=== PATIENT | male | born 1965 | race Caucasian/White ===

== ENCOUNTER 2018-04-30 09:39 | Inpatient (IN) | payer BC, OTHER ==
[2018-04-30] MEDS ORDERED: predniSONE TAB* 20 MG PO ONE (10:01)
--- NOTE | 2018-04-30 10:08 | ED ---
HPI Chest Pain - HPI Summary HPI Summary: A 52 y/o male presents to [facility] with a chief complaint of chest pain, which he describes as a tightness, since 04/16/18. He claims that his chest pain is constant and radiates to his shoulder. He also c/o cough, sore throat, high BP, SOB, trouble sleeping, chills, sweats, and N/V. He denies a runny nose and headaches. He has a Hx of HTN, DM and Bronchitis, FHx asthma. He reports using a steroid inhaler since 04/23/18. He is a smoker, but has cut back since his symptoms started. - History of Current Complaint Chief Complaint: EDUpperRespComplaint Time Seen by Provider: 04/30/18 09:49 Hx Obtained From: Patient Onset/Duration: Started Weeks Ago, Still Present Timing: Constant Initial Severity: Severe Current Severity: Severe Pain Intensity: 7 Pain Scale Used: 0-10 Numeric Chest Pain Radiates To:: Shoulder Character: Tightness Aggravating Factor(s): Movement Alleviating Factor(s): Nothing Associated Signs and Symptoms: Positive: Shortness of Breath, Chills, Diaphoresis, Nausea, Nonproductive Cough, Vomiting. Negative: Headaches - Allergy/Home Medications Allergies/Adverse Reactions: Allergies Allergy/AdvReac Type Severity Reaction Status Date / Time Penicillins Allergy Rash And Verified 04/30/18 09:44 Itching Home Medications: Home Medications Cetirizine* [ZyrTEC 10 MG TAB*] 10 mg PO DAILY 04/30/18 [History Confirmed 04/30] Metformin ER (NF) 2,000 mg PO DAILY 04/30/18 [History Confirmed 04/30/18] Mirtazapine TAB* [Remeron TAB*] 30 mg PO BEDTIME 04/30/18 [History Confirmed 01/08] Ranitidine TAB (NF) [Zantac TAB (NF)] 150 mg PO DAILY 04/30/18 [History Confirmed 04/30/18] amLODIPine TAB* [Norvasc 5 mg TAB*] 5 mg PO DAILY 04/30/18 [History Confirmed ] busPIRone TAB* [Buspar TAB *] 15 mg PO BID 04/30/18 [History Confirmed 04/30/18] PMH/Surg Hx/FS Hx/Imm Hx Endocrine/Hematology History: Reports: Hx Diabetes Cardiovascular History: Reports: Hx Hypertension Respiratory History: Denies: Hx Asthma Infectious Disease History: No Infectious Disease History: Denies: Traveled Outside the [place] in Last 30 Days - Family History Known Family History: Positive: Other - Positive: Asthma - Social History Alcohol Use: None Substance Use Type: Reports: None Hx Tobacco Use: Yes Smoking Status (MU): Heavy Every Day Tobacco Smoker Type: Cigarettes Review of Systems Positive: Chills, Skin Diaphoresis, Other - Positive: difficuly sleeping. Negative: Fever Positive: Sore Throat Positive: Chest Pain, Other - Positive: high BP Positive: Shortness Of Breath, Cough Positive: Vomiting, Nausea Negative: Headache All Other Systems Reviewed And Are Negative: Yes Physical Exam - Summary Physical Exam Summary: Appearance: Well appearing, no pain distress Skin: warm, dry, reflects adequate perfusion Head/face: normal Eyes: EOMI, DELMY ENT: mucous membranes moist Neck: supple, non-tender Respiratory: Diminished breath sounds right base, no wheezes Cardiovascular: tachycardic, regular rhythm, pulses symmetrical Abdomen: non-tender, soft Bowel Sounds: present Musculoskeletal: normal, strength/ROM intact Neuro: normal, sensory motor intact, A&Ox3 Triage Information Reviewed: Yes Vital Signs On Initial Exam: Initial Vitals Temp Pulse Resp BP Pulse Ox 98.9 F 133 22 173/114 98 04/30/18 09:40 04/30/18 09:40 04/30/18 09:40 04/30/18 09:40 04/30/18 09:40 Vital Signs Reviewed: Yes Diagnostics - Vital Signs Vital Signs Temp Pulse Resp BP Pulse Ox 04/30/18 09:40 98.9 F 133 22 173/114 98 - Laboratory Result Diagrams: 04/30/18 10:36 04/30/18 10:36 Lab Statement: Any lab studies that have been ordered have been reviewed, and results considered in the medical decision making process. - Radiology CXR Radiology Interpretation Completed By: Radiologist Summary of Radiographic Findings: NO EVIDENCE FOR ACUTE FINDING. ED provider has reviewed this imaging report. - CT Chest/thorax CTA CT Interpretation Completed By: Radiologist Summary of CT Findings: No evidence for pulmonary embolism. LEFT anterior descending coronary artery calcification noted. Negative for pulmonary edema. ED provider has reviewed this imaging report. - EKG 10:34 Cardiac Rate: Tachycardia - 122 bpm EKG Rhythm: Sinus Tachycardia ST Segment: Non-Specific Summary of EKG Findings: Sinus tachycardia at 122 bpm. Normal Vill[place]. Normal Interval. Nonspecific ST Re-Evaluation - Re-Evaluation First Eval Re-Evaluation Time: 11:11 Change: Unchanged Comment: Chest pain is feeling better but sitting up aggravates his pain. Second Eval Re-Evaluation Time: 11:33 Change: Unchanged Comment: Discussed results and plan of admission to patient's mother. Third Eval Re-Evaluation Time: 11:49 Change: Unchanged Comment: Informed patient about high troponin and plan for admission. Chest Pain Course/Dx - Course Course Of Treatment: Nurse's notes reviewed. Patient presents with what he feels is cough and cold symptoms including cough, shortness of breath and left- sided chest pain. His blood sugar is also been out of control. Patient proved to have elevated troponin with tachycardia but no significant ST changes on EKG. CT pulmonary angiogram ruled out pulmonary emboli. There was incidental calcification noticed in the LAD. There is no pneumonia and flu test was negative. Patient was discussed with cardiology who will see in consultation. He will be admitted to the hospitalist service. He is placed on a heparin drip here for positive acute coronary syndrome. - Chest Pain Differential Diagnosis/HQI/PQRI: Acute NV, ACS, Angina, CHF, Chest Wall, GI Disease, Lower Respiratory Infection, Pulmonary Edema, Pulmonary Embolism - Diagnoses Provider Diagnoses: COPD (chronic obstructive pulmonary disease), Hyperglycemia, Non-ST elevation NV (NSTEMI), Acute coronary syndrome - Provider Notifications Discussed Care Of Patient With: Ming Webb Time Discussed With Above Provider: 11:30 Instructed by Provider To: Admit As Inpatient - Critical Care Time Critical Care Time: 30-74 min - CCT is EXCLUSIVE of separately billable procedures. Discharge - Sign-Out/Discharge Documenting (check all that apply): Patient Departure - admit - Discharge Plan Condition: Guarded Disposition: ADMITTED TO [facility] - Billing Disposition and Condition Condition: GUARDED Disposition: Admitted to [facility] - Attestation Statements Document Initiated by Scribe: Yes Documenting Scribe: Ferdinand Cho Provider For Whom Scribe is Documenting (Include Credential): Fam Ladd MD Scribe Attestation: Ferdinand Marie, scribed for Fam Ladd MD on 04/30/18 at 1321. Scribe Documentation Reviewed: Yes Provider Attestation: The documentation as recorded by the scribe, Ferdinand Cho accurately reflects the service I personally performed and the decisions made by me, Fam Ladd MD Status of Scribe Document: Viewed Consult Consult: At 11:[address] Tucker, cardio, who is now on the case.
[2018-04-30] MEDS ORDERED: NS 0.9% 1000 ML** 1,000 ML IV ONE (10:24)
[2018-04-30] MEDS ORDERED: Ketorolac INJ* 30 MG/ML 1 ML VIAL IV PUSH ONE (10:24)
[2018-04-30 10:43] LABS: Influenza A Molecular NEGATIVE (Negative); Influenza B Molecular NEGATIVE (Negative)
[2018-04-30 10:43] LABS: ABS Basophils 0 10^3/ul (0-0.2); ABS Eosinophils 0.2 10^3/ul (0-0.6); ABS Lymphocytes 0.5 10^3/ul (1.0-4.8); ABS Monocytes 0.7 10^3/ul (0-0.8); ABS Neutrophils 6.8 10^3/ul (1.5-7.7); ABS Nucleated RBC 0 10^3/ul; Eosinophil % 2.9 %; Hematocrit 42 % (42-52); Hemoglobin 14.6 g/dl (14.0-18.0); Lymphocyte % 5.5 %; Mean Corpuscular HGB Conc 35 g/dl (31-36); Mean Corpuscular Hemoglobin 31 pg (27-31); Mean Corpuscular Volume 88 fL (80-94); Mean Platelet Volume 8.4 fL (7.4-10.4); Nucleated Red Blood Cells % 0.1; Platelet Count 207 10^3/ul (150-450); Red Cell Distribution Width 13 % (10.5-15); White Blood Count 8.2 10^3/ul (3.5-10.8)
[2018-04-30 11:04] LABS: Troponin I 0.49 ng/mL (<0.04)
[2018-04-30] MEDS ORDERED: Metoprolol Tartrate IV* 1 MG/ML 5 ML VIAL IV ONE ×2 (11:05→11:51)
[2018-04-30] MEDS ORDERED: Aspirin 81 mg CHEW TAB* 81 MG TAB.CHEW PO ONE (11:05)
[2018-04-30 11:15] LABS: ALT 44 U/L (7-52); AST 35 U/L (13-39); Albumin/Globulin Ratio 1.2 (1-3); Alkaline Phosphatase 138 U/L (34-104); Anion Gap 11 mmol/L (2-11); BUN/Creatinine Ratio 12.6 (8-20); Blood Urea Nitrogen 11 mg/dL (6-24); CO2 Carbon Dioxide 23 mmol/L (22-32); Chloride 92 mmol/L (101-111); EGFR African American 112.4 (>60); EGFR Non-African American 92.9 (>60); Globulin 3.3 g/dL (2-4); Glucose 346 mg/dL (70-100); Potassium 4.5 mmol/L (3.5-5.0); Sodium 126 mmol/L (135-145); Total Protein 7.3 g/dL (6.4-8.9)
[2018-04-30] MEDS ORDERED: Heparin DRIP 25,000 UNITS(*) 25,000 UNITS/500 ML BAG IV SCH ×2 (11:15→13:00)
[2018-04-30] MEDS ORDERED: Iodixanol* (CONTRAST) 320 MG/ML 100 ML SDV IV ONE (11:18)
[2018-04-30] MEDS ORDERED: Heparin DRIP 25,000 UNITS(*) 25,000 UNITS/500 ML BAG ONE (11:35)
[2018-04-30] MEDS ORDERED: Heparin VIAL(*) 5000 UNITS/ML VIAL (FIVE THOUSAND) ONE (11:38)
[2018-04-30 11:39] LABS: Alcohol < 10 mg/dL (<10)
[2018-04-30 12:04] LABS: Activated Partial Thrombo Time 30.1 seconds (26.0-36.3); INR 0.92 (0.77-1.02)
[2018-04-30] MEDS ORDERED: Dextrose 50% Syringe 50 ML* 25 GM/50 ML SYRINGE IV PUSH PRN ×2 (13:11→17:12)
[2018-04-30] MEDS ORDERED: Aspirin TAB* 325 MG PO ONE (13:12)
[2018-04-30] MEDS ORDERED: Morphine VIAL* 4 MG/ML VIAL (1 ml vial) IV PRN (13:13)
[2018-04-30] MEDS ORDERED: Nitroglycerin TAB 0.4 MG* 0.4 MG TAB SL ONE (13:16)
[2018-04-30] MEDS ORDERED: Nitroglycerin TAB 0.4 MG* 0.4 MG TAB SL PRN ×2 (13:59→18:11)
[2018-04-30] MEDS ORDERED: Furosemide IV* 10 MG/ML VIAL (40 MG) IV SCH (14:00)
[2018-04-30] MEDS ORDERED: Perflutren Lipid Microsphere* 3 ML VIAL ONE (14:41)
--- NOTE | 2018-04-30 15:47 | HP ---
ADMITTING HISTORY AND PHYSICAL: DATE OF ADMISSION: 04/30/18 CHIEF COMPLAINT: Progressive shortness of breath and chest pain for the last 2 weeks that has been worsening for the last week. HISTORY OF PRESENT ILLNESS/HOSPITAL COURSE: The patient is a 52-year-old gentleman with history of anxiety; diabetes, not insulin requiring; hypertension, who mentioned that he started having some cough and some shortness of breath more pronounced with exertion for the past 2 weeks. However , he mentioned that since last Saturday which is about 6 days prior to admission, his symptoms worsened and persistence of her signs and symptoms led to his presentation in the ED. In addition, he mentioned that last night, he felt as if he was having fevers or chills, but denied any cough. No sputum production. Only felt a very brief episode of myalgias and arthralgias, but noting persistent and mentions that he does not have any sick contacts. PAST MEDICAL AND SURGICAL HISTORY: Hypertension, depression, anxiety, diabetes , and GERD. ALLERGIES: PENICILLIN, which causes rashes. FAMILY HISTORY: Diabetes, his mother. Hypertension, his father. Coronary artery disease, his paternal grandfather. CVA, his maternal grandfather. SOCIAL HISTORY: He is a facility maintenance technician. He is single. He lives with his mother. He is never and does not have any children. REVIEW OF SYSTEMS: The patient complained of some continuous chest pain that sometimes radiates to the upper portion of his chest, to the back of his throat , as well as dyspnea on exertion that has worsened and now affects him at rest for the last 2 days or so. Denies any headaches, dizziness. He did have some brief chills. Denied any abdominal pain, diarrhea, constipation, pain and/or increase frequency in urination, myalgias or arthralgias, throat pain, or new skin lesions. He does complain of some mild dyspepsia. The rest of the 14- point review of systems are otherwise unremarkable. PHYSICAL EXAMINATION GENERAL APPEARANCE: The patient is awake, alert, and oriented x3; not in acute distress. VITAL SIGNS: Shows the most recent vital signs of records with blood pressure of 115/88, 98.9 degrees Fahrenheit, 110 per minute heart rate, 16 per minute respiratory rate, saturating at 95% at 2 L nasal canula. HEENT: Normocephalic, atraumatic. PERRLA. Extraocular muscles intact. Negative for icterus. Moist oral mucosa. Negative throat erythema. NECK: Soft, supple with no cervical lymphadenopathy. No JVD. CHEST: With bibasilar crackles. HEART: S1, S2, within normal limites. Regular rate and rhythm. No murmurs, rubs and gallops. ABDOMEN: Soft, nondistended, nontender. Normoactive bowel sounds x4 quadrant. EXTREMITIES: No cyanosis, clubbing, or edema. PSYCHIATRIC: No active psychosis, depression, suicidal, or homicidal ideations. SKIN: Warm to touch. ASSESSMENT AND PLAN: As follows: The patient is a 52-year-old gentleman with history of anxiety, noninsulin-requiring diabetes and hypertension, who presented with chest pain and shortness of breath. 1. Chest pain/shortness of breath. I believed the patient may have newly diagnosed congestive heart failure. Even though that it is not reported in the official CT scan report, I feel that he does have enough ground glass opacities and certainly his symptoms of dyspnea on exertion despite absence of jugular venous distention for possible left sided failure is still possible. He does have a mildly elevated BNP and we diuresed the patient for now until we can get 2D echo. In addition, his dyspnea on exertion may also be presentation of an unstable angina and hence I will place him on heparin drip while 2D echo as well as troponins are cycled and are currently pending. He also has a stress test that I have ordered for tomorrow. We will continue him on aspirin, morphine p.r.n., as well as nitroglycerine p.r.n. for chest pain and oxygen per protocol. 2. Gastroesophageal reflux disease. I believe some of his chest pain, especially his complaints of it radiating to the upper portions of his chest as well as possibly having some throat pain would be more consistent of gastroesophageal reflux symptoms and hence we would hold his ranitidine and instead place him on pantoprazole and we will continue watchful waiting. 3. Diabetes mellitus. We will hold on metformin at this time and we will place the patient on insulin sliding scale and will check fingersticks as ordered. 4. Hypertension. We will place the patient on amlodipine and we will consider metoprolol once acute, likely left-sided congestive heart failure has improved and can be considered as an outpatient. Please see above discussion for details. 5. Anxiety. We will continue buspirone. 6. DVT prophylaxis. The patient will be on a heparin drip. 7. Disposition: For PT kadial. [id number]/[facility] #: [id number] [facility]
--- NOTE | 2018-04-30 15:56 | ECHO ---
Patient: TIM BRONSON Rec#: [id number] : 1965 Date: 04/30/2018 Age: 52y Height: 188 cm / 74.0 in Weight: 95.3 kg / 210.0 lbs Sex: M BSA: 2.2 Room#: [facility] Admit Date#: 04/30/2018 Type: Inpatient Referring: Ming Webb Reading: Catrina Buitrago MD Predictive Maintenance Technician: Marcia Christian RN RDCS CC: Wandy Gong MD Transthoracic Echocardiogram Indication: Chest pain, elevated troponin level BP: 115/88 HR: 106 Rhythm: Tachycardia Findings History: HTN, DM, bronchitis, smoker Technical Comments: The study quality is fair. The study is technically limited due to the patient's smoking history. Left Ventricle: The left ventricular chamber size is normal. Mild to moderate concentric left ventricular hypertrophy is observed. There is a focal wall motion abnormality present.Akinesis and severe hypokinesis of the posterior wall to the apex and lateral wall, best imaged with echo contrast. There is moderately decreased left ventricular systolic function. The estimated ejection fraction is 35-40%. Abnormal left ventricular diastolic function is observed. Left Atrium: The left atrium is mildly dilated. Right Ventricle: The right ventricular chamber size and systolic function are within normal limits. Right Atrium: The right atrial cavity size is normal. Aortic Valve: The aortic valve is trileaflet. The aortic valve leaflets are mildly thickened. There is a trace of aortic regurgitation. There is no evidence of aortic stenosis. Mitral Valve: The mitral valve leaflets are mildly thickened. There is mild to moderate mitral regurgitation. There is no evidence of mitral stenosis. Tricuspid Valve: The tricuspid valve leaflets are normal. There is mild to moderate tricuspid regurgitation. The right ventricular systolic pressure is estimated at 46 mmHg. There is evidence of moderate pulmonary hypertension. There is no tricuspid stenosis. Pulmonic Valve: The pulmonic valve appears normal. There is no evidence of pulmonic regurgitation. There is no pulmonic stenosis. Pericardium: There is no significant pericardial effusion. Aorta: There is no dilatation of the ascending aorta. There is no dilatation of the aortic arch. There is no dilation of the aortic root. Pulmonary Artery: The main pulmonary artery appears normal. Venous: The inferior vena cava is dilated. There is less than 50% respiratory change in the inferior vena cava dimension. Contrast: Definity was used to optimize study. A total of 3 ml of diluted Definity was given IV. Conclusions Mild to moderate concentric left ventricular hypertrophy is observed. There is a focal wall motion abnormality present.Akinesis and severe hypokinesis of the posterior wall to the apex and lateral wall, best imaged with echo contrast. There is moderately decreased left ventricular systolic function. The estimated ejection fraction is 40%. Abnormal left ventricular diastolic function is observed. The right ventricular chamber size and systolic function are within normal limits. There is a trace of aortic regurgitation. There is mild to moderate mitral regurgitation, lateral jet. There is mild to moderate tricuspid regurgitation. There is evidence of moderate pulmonary hypertension estimated at 46 mmHg. No prior echo to compare. Measurements Name Value Normal Range RVIDd (AP) 2D 2.7 cm (0.9 - 2.6) RVDdMajor (2D) 3.2 cm (2.2 - 4.4) RAd ISD 4CH 4.2 cm (3.4 - 4.9) RA (A4C)W 3.6 cm (2.9 - 4.6) IVSd (2D) 1.4 cm (0.6 - 1) LVPWd (2D) 1.1 cm (0.6 - 1) LVIDd (2D) 5 cm (3.6 - 5.4) LVIDs (2D) 3.9 cm - LV FS (2D) 22 % (25 - 45) Aortic Annulus 1.8 cm (1.4 - 2.6) Ao root diameter (2D) 3.1 cm (2.1 - 3.5) Ascending Ao 3 cm (2.1 - 3.4) Aortic arch 2.8 cm (1.8 - 3.4) LA dimension (AP) 2D 3.1 cm (2.3 - 3.8) LAd ISD 4CH 6.3 cm (2.9 - 5.3) LA ISD 4CH W 3.7 cm (2.5 - 4.5) Name Value Normal Range LA ESV BP (A/L) index 25.8 ml/m2 - Name Value Normal Range MV E-wave Vmax 0.99 m/sec - MV deceleration time 141 msec - MV A-wave Vmax 0.9 m/sec - MV E:A ratio 1.1 ratio - LV septal e' Vmax 0.07 m/sec - LV lateral e' Vmax 0.09 m/sec - LV E:e' septal ratio 14.1 ratio - LV E:e' lateral ratio 11 ratio - Name Value Normal Range AV Vmax 1.3 m/sec - AV VTI 21.5 cm - AV peak gradient 7 mmHg - AV mean gradient 4 mmHg - LVOT Vmax 0.89 m/sec - LVOT VTI 14.9 cm - LVOT peak gradient 3 mmHg - LVOT mean gradient 2 mmHg - CORNELIA Vmax 0.71 m/sec - Name Value Normal Range TR Vmax 2.8 m/sec - TR peak gradient 31 mmHg - RAP 15 mmHg - RVSP 46 mmHg - IVC diameter 2.3 cm - Name Value Normal Range PV Vmax 0.79 m/sec -
[2018-04-30] MEDS ORDERED: Metoprolol Tartrate TAB* 25 MG PO ONE (16:14)
--- NOTE | 2018-04-30 16:24 | CONSULT ---
Subjective Date of Service: 04/30/18 - CC: chest pain Interval History: 52 yo male with no prior cardiac history. 10 days ago noted MTZ. Saturday (5 days ago) noted SOB rest, chills, shaking, nausea and anorexia and he thought he might be getting an infection. By today the patient had severe CP and presented to ED. He was having trouble deciding when the CP started. He has nominal pain now, but it hasn't cleared completely (s/p heparin gtt, ASA, IV metoprolol, NTG, Prednisone, Toradol). Family History: Findings - Father and P GF + ME in 60's. Social History: Findings - +smoker since 15 yo. Works as a refrigeration person. Rare cocaine when younger, non now. Past Medical History: Findings - + HTN, DM, GERD, anxiety/depression. Medications Active Medications: Amlodipine Besylate (Norvasc Tab*) 5 mg PO DAILY [facility] Atorvastatin Calcium (Lipitor*) 80 mg PO 1700 [facility] Buspirone HCl (Buspar Tab *) 15 mg PO BID [facility] Dextrose (D50w Syringe 50 Ml*) 12.5 gm IV PUSH .FOR FS < 60 - SS PRN PRN Reason: FS < 60 Furosemide (Lasix Iv*) 40 mg IV DAILY [facility] Last Admin: 04/30/18 14:06 Dose: 40 mg Heparin Sodium/Dextrose (Heparin Drip 25,000 Units(*)) 25,000 units in 500 mls @ 0 mls/hr IV PER RATE [facility]; Protocol Last Admin: 04/30/18 14:07 Dose: 20 mls/hr Influenza Virus Vaccine (Fluarix *Quad* 2017-*) 0.5 ml IM .ONCE ONE Stop: 05/01/18 09:01 Insulin Human Lispro (Humalog*) 0 units SUBCUT ACHS [facility]; Protocol Metoprolol Tartrate (Lopressor Tab*) 25 mg PO ONCE ONE Stop: 04/30/18 16:15 Mirtazapine (Remeron Tab*) 30 mg PO BEDTIME [facility] Morphine Sulfate (Morphine Vial*) 0.5 mg IV Q6H PRN PRN Reason: PAIN Nitroglycerin (Nitroglycerin Tab 0.4 Mg*) 0.4 mg SL Q5M PRN PRN Reason: ANGINA Pantoprazole Sodium (Protonix Tab *) 40 mg PO DAILY [facility] Pneumococcal Polyvalent Vaccine (Pneumococcal Vac 23-Polyvalent*) 0.5 ml IM .ONCE ONE Stop: 05/01/18 09:01 Home Medications: Cetirizine* [ZyrTEC 10 MG TAB*] 10 mg PO DAILY 04/30/18 [History Confirmed 04/30] Metformin ER (NF) 2,000 mg PO DAILY 04/30/18 [History Confirmed 04/30/18] Mirtazapine TAB* [Remeron TAB*] 30 mg PO BEDTIME 04/30/18 [History Confirmed 01/08] Ranitidine TAB (NF) [Zantac TAB (NF)] 150 mg PO DAILY 04/30/18 [History Confirmed 04/30/18] amLODIPine TAB* [Norvasc 5 mg TAB*] 5 mg PO DAILY 04/30/18 [History Confirmed ] busPIRone TAB* [Buspar TAB *] 15 mg PO BID 04/30/18 [History Confirmed 04/30/18] Review of Systems - Measurements Intake and Output: Intake and Output Last 24 Hours 04/28/18 04/29/18 04/30/18 05/01/18 04:59 04:59 04:59 04:59 Intake Total 25.7 Output Total 0 Balance 25.7 Weight 197 lb 11.2 oz Intake: IV Fluids 25.7 Oral 0 Output: Urine 0 - Review of Systems Constitutional Symptoms: Negative: Weight Gain, Weight Loss, Weakness, Fatigue, Fever, Night Sweats, Unexplained Falls, Other Dermatology: Positive: Normal HEENT: Positive: Normal Eyes: Positive: Normal Thyroid: Positive: Normal Pulmonary: Positive: Cough, Shortness of Breath Cardiology: Positive: Chest Pain Gastroenterology: Positive: Nausea, Anorexia Genital - Urinary: Positive: Normal Hematologic/Lymphatic: Negative: Anemia, Easy Brusing, Hx Leukemia, Hx Lymphoma, Use of Anticoagulant, Use of Antiplatelet Drugs, Other Neurology: Positive: Normal Review of Systems Statement: All other review of systems negative, unless stated above. Objective Vital Signs: Temp Pulse Resp BP Pulse Ox 98.7 F 110 16 116/80 98 04/30/18 15:14 04/30/18 15:14 04/30/18 15:14 04/30/18 15:14 04/30/18 15:14 Oxygen Devices in Use Now: Nasal Cannula Appearance: middle aged tall fit man lying flat, appears anxious. Eyes: No Scleral Icterus, PERRLA Ears/Nose/Mouth/Throat: NL Teeth, Lips, Gums, Clear Oropharnyx, Mucous Membranes Moist Neck: NL Appearance and Movements; NL JVP, No Thyroid Enlargement, Masses Respiratory: Symmetrical Chest Expansion and Respiratory Effort - Rare wheeze, smokers cough, mildly diminished BS Cardiovascular: NL Sounds; No Murmurs; No JVD, RRR Abdominal: NL Sounds; No Tenderness; No Distention Lymphatic: No Cervical Adenopathy Extremities: No Edema - Strong symetrical radial and femoral pulses. No bruits. Skin: No Rash or Ulcers Neurological: Alert and Oriented x 3, NL Muscle Strength and Tone - in bed. Lines/Tubes/Other Access: Clean, Dry and Intact Peripheral IV Laboratory Results: 04/30/18 10:36 04/30/18 10:36 INR (Anticoag Therapy) 0.92 (0.77-1.02) 04/30/18 11:48 APTT 30.1 seconds (26.0-36.3) 04/30/18 11:48 Total Bilirubin 0.40 mg/dL (0.2-1.0) 04/30/18 10:36 AST 35 U/L (13-39) 04/30/18 10:36 ALT 44 U/L (7-52) 04/30/18 10:36 Alkaline Phosphatase 138 U/L (34-104) H 04/30/18 10:36 B-Natriuretic Peptide 318 pg/mL (<=100) H 04/30/18 10:36 Total Protein 7.3 g/dL (6.4-8.9) 04/30/18 10:36 Albumin 4.0 g/dL (3.2-5.2) 04/30/18 10:36 Globulin 3.3 g/dL (2-4) 04/30/18 10:36 Albumin/Globulin Ratio 1.2 (1-3) 04/30/18 10:36 04/30/18 04/30/18 10:36 15:18 Troponin I 0.49 H* 2.04 H* Abnormal Lab Results 04/30/18 04/30/18 04/30/18 10:32 10:36 10:36 WBC 8.2 RBC 4.70 Hgb 14.6 Hct 42 MCV 88 MCH 31 MCHC 35 RDW 13 Plt Count 207 MPV 8.4 Neut % (Auto) 83.1 Lymph % (Auto) 5.5 Clayton % (Auto) 8.2 Eos % (Auto) 2.9 Baso % (Auto) 0.3 Absolute Neuts (auto) 6.8 Absolute Lymphs (auto) 0.5 L Absolute Monos (auto) 0.7 Absolute Eos (auto) 0.2 Absolute Basos (auto) 0 Absolute Nucleated RBC 0 Nucleated RBC % 0.1 INR (Anticoag Therapy) APTT Sodium 126 L Potassium 4.5 Chloride 92 L Carbon Dioxide 23 Anion Gap 11 BUN 11 Creatinine 0.87 Est GFR ( Amer) 112.4 Est GFR (Non-Af Amer) 92.9 BUN/Creatinine Ratio 12.6 Glucose 346 H Calcium 9.0 Total Bilirubin 0.40 GGT 74 H AST 35 ALT 44 Alkaline Phosphatase 138 H Troponin I 0.49 H* B-Natriuretic Peptide Total Protein 7.3 Albumin 4.0 Globulin 3.3 Albumin/Globulin Ratio 1.2 Lipase 34 Serum Alcohol < 10 Influenza A (Rapid) Negative Influenza B (Rapid) Negative 04/30/18 04/30/18 04/30/18 10:36 11:48 15:18 WBC RBC Hgb Hct MCV MCH MCHC RDW Plt Count MPV Neut % (Auto) Lymph % (Auto) Clayton % (Auto) Eos % (Auto) Baso % (Auto) Absolute Neuts (auto) Absolute Lymphs (auto) Absolute Monos (auto) Absolute Eos (auto) Absolute Basos (auto) Absolute Nucleated RBC Nucleated RBC % INR (Anticoag Therapy) 0.92 APTT 30.1 Sodium Potassium Chloride Carbon Dioxide Anion Gap BUN Creatinine Est GFR ( Amer) Est GFR (Non-Af Amer) BUN/Creatinine Ratio Glucose Calcium Total Bilirubin GGT AST ALT Alkaline Phosphatase Troponin I 2.04 H* B-Natriuretic Peptide 318 H Total Protein Albumin Globulin Albumin/Globulin Ratio Lipase Serum Alcohol Influenza A (Rapid) Influenza B (Rapid) Diagnostic Imaging: CTA: Calcification LAD, negative for PE. Echo: severe hypo/akinesis posterior wall/lateral wall (Cx distribution). MR. EF 40%. EKG Data: ECG 04/30/18 10:34 AM: ST 122 bpm, no Q's. Mild ST depression inf. lat. leads, non specific. Assessment/Plan 52 yo smoker, FHx CAD presenting with story concerning for crescendo angina, admitted with severe CP today. Trop #2 is 2, echo suggesting of severe circumflex occlusion. Tachycardic. CAD risks of active smoking, DM, HTN, FHx, (unknown lipid status). I am treating as NQMI. I recommended urgent cardiac catheterization for ongoing CP. Adding Lipator 80 mg, checking lipids. Adding long acting metoprolol x 1, post cath will order more. On UF heparin and has received ASA. Hold on ACEI for now as BP soft. CAD risks: DM: Has been on metformin, hold after cath for renal protection. May benefit from newer agents that have cardiac benefits. Needs counseling for smoking cessation, I discussed with the patient. HTN controlled today. Hyponatremia noted, will repeat labs now pre cath, if persistently low needs formal evaluation and treatment. Further recommendations pending the results of his cath.
[2018-04-30] MEDS: Atorvastatin* 80 MG TAB PO SCH ×2 (16:30)
[2018-04-30] MEDS ORDERED: Heparin(*) 1000 UNIT/ML 10 ML VIAL CATH LAB IV ONE (16:31)
[2018-04-30] MEDS ORDERED: Midazolam* 1 MG/ML 10 ML VIAL (10 MG) ONE (16:31)
[2018-04-30] MEDS ORDERED: Heparin 2 UNITS/ML IVPREMIX* 3,000 ML IV ONE (16:31)
[2018-04-30] MEDS ORDERED: nitroGLYCERIN DRIP* 25,000 MCG/250 ML BTL ONE (16:31)
[2018-04-30] MEDS ORDERED: VERAPAMIL 2.5 MG/ML 2 ML VIAL ** 5 mg/2 ml ONE (16:31)
[2018-04-30] MEDS ORDERED: fentaNYL* 50 MCG/ML 2 ML VIAL (100 MCG VIAL) ONE ×2 (16:31→17:48)
[2018-04-30] MEDS ORDERED: Lidocaine 1% INJ* 10 MG/ML 30 ML SDV ONE (16:32)
[2018-04-30] MEDS ORDERED: Iohexol 350 (CONTRAST) 200 ML MDV IV ONE (16:32)
[2018-04-30] MEDS ORDERED: Insulin LISPRO* 1 UNITS UNIT SUBCUT ONE (17:12)
[2018-04-30] MEDS: Insulin LISPRO* 1 UNITS UNIT SUBCUT SCH ×2 (17:21→21:44)
[2018-04-30] MEDS ORDERED: Ticagrelor* 90 MG TAB PO ONE (17:38)
[2018-04-30] MEDS ORDERED: Acetaminophen TAB* 325 MG PO PRN (18:11)
[2018-04-30] MEDS ORDERED: NS 0.9% 1000 ML** 400 ML IV SCH (18:15)
--- NOTE | 2018-04-30 18:35 | CONS ---
CC: Dr. Calderon; Dr. Gong; Nelson Parikh MD INTERVENTIONAL CARDIOLOGY CONSULT NOTE: DATE OF CONSULT: 04/30/18 PRIMARY CARE PHYSICIANS: Dr. Calderon and Dr. Gong in [place]. HISTORY OF PRESENT ILLNESS: A 52-year-old male with non-ST elevation infarct and congestive heart failure. He is referred for a cardiac cath. He is a diabetic, has had 2 weeks of progressive exertional dyspnea culminating in CHF class IV with PND and orthopnea last night. Over the weekend and last night, he also had chest pain. Last night, his chest pain essentially lasted "all night long" with some waxing and waning, but no complete resolution. He presented to the ER this morning, chest pain resolved after he was treated with steroids, nonsteroidals, as well as Lasix. There is no known prior history of a cardiac disease. PAST MEDICAL HISTORY: Diabetes, hypertension. H/o pneumonia with bacteremia. MEDICATIONS: Preadmission Medications: 1. Zantac 150 daily. 2. Zyrtec 10 mg daily. 3. Norvasc 5 mg daily. 4. Metformin 2 g daily. 5. BuSpar 15 mg b.i.d. 6. Remeron 30 mg at bedtime. ALLERGIES: He is allergic to PENICILLIN. FAMILY HISTORY: Positive for coronary artery disease, but not for premature coronary disease. SOCIAL HISTORY: He is 0-yech-bgi-day smoker. REVIEW OF SYSTEMS: General: No weight loss. No fevers. [employer]: No history of TIA or CVA. GI: No history of peptic ulcer disease or bleeding. Heme: No history of malignancy or anemia. Remainder all negative. PHYSICAL EXAM: Currently, he is pain free and not in dyspneic or tachypneic or orthopneic. He is diuresing. His last blood pressure 116/80, heart rate is 100. He is in sinus rhythm. His lungs, he has no audible rales currently. Neck : JVP is normal. Carotids are normal. Cardiac Exam: No gallop or murmur or rub. Abdomen: Soft, nontender, no bruit, I cannot feel the aorta. Liver not palpable. Femoral pulses are palpable. Extremities: Radial and pedal pulses are palpable. He has no cyanosis, clubbing, or edema. DIAGNOSTIC STUDIES/LAB DATA: Chest x-ray by my review does suggest central hilar congestion. Echo reported EF of 35% to 40% with posterolateral hypokinesis and moderate pulmonary hypertension with artery systolic pressure of 46. His BNP on admission was high at 318; initial troponin 0.49, then 2.04. His blood sugar on admission high at 346 with normal creatinine 0.87, he has likely factitious hyponatremia. EKG shows sinus tach at [address]-T wave changes on admission with subsequent improvement with slowing of his rate with IV and oral beta- blockade. IMPRESSION: 1. Non-ST elevation infarct. This is likely in the circumflex distribution based on the echo findings. So far, he has a small troponin rise, although, not yet peaked. We discussed cardiac cath, possible percutaneous revascularization, procedural risks including CVA, NE, bleeding, , need for emergent bypass grafting with transfer to a tertiary center with the attendant risks, etc. He wants to proceed. 2. Diabetes type 2. He is likely not well controlled, based on his high blood sugar. 3. Tobacco use. We will encourage him not to resume smoking. Thanks for the consultation. [id number]/[facility] #: [id number] [place]
[2018-04-30 19:53] LABS: C Reactive Protein 180.79 mg/L (<8.01)
[2018-04-30] MEDS: Nicotine PATCH 21 MG/24 HR* PATCH TRANSDERM SCH (19:58)
[2018-04-30] MEDS: Metoprolol Tartrate TAB* 25 MG PO SCH (19:59)
[2018-04-30 20:16] LABS: CKMB ng/mL 43.1 ng/mL (0.6-6.3)
[2018-04-30 20:28] LABS: Troponin I 4.84 ng/mL (<0.04)
[2018-04-30] MEDS: Ticagrelor* 90 MG TAB PO SCH (21:12)
[2018-04-30] MEDS: busPIRone TAB* 15 MG PO SCH (21:12)
[2018-04-30] MEDS: Mirtazapine TAB* 15 MG PO SCH (21:13)
[2018-04-30] MEDS: Captopril TAB* 12.5 MG PO SCH (21:32)
[2018-04-30] MEDS ORDERED: guaiFENesin LIQ* 100 MG/5 ML UDC ONE (22:19)
[2018-04-30] MEDS: GuaiFENesin DM* 5 ML UDC PO PRN (22:24)
[2018-05-01 01:57] LABS: CKMB ng/mL 47.7 ng/mL (0.6-6.3)
[2018-05-01 02:09] LABS: Troponin I 12.26 ng/mL (<0.04)
[2018-05-01] MEDS: Metoprolol Tartrate TAB* 25 MG PO SCH (03:16)
[2018-05-01 06:09] LABS: ABS Basophils 0 10^3/ul (0-0.2); ABS Eosinophils 0.3 10^3/ul (0-0.6); ABS Lymphocytes 1.6 10^3/ul (1.0-4.8); ABS Monocytes 1.1 10^3/ul (0-0.8); ABS Neutrophils 7.2 10^3/ul (1.5-7.7); ABS Nucleated RBC 0 10^3/ul; Eosinophil % 3.3 %; Hematocrit 39 % (42-52); Hemoglobin 13.6 g/dl (14.0-18.0); Lymphocyte % 15.2 %; Mean Corpuscular HGB Conc 34 g/dl (31-36); Mean Corpuscular Hemoglobin 31 pg (27-31); Mean Corpuscular Volume 90 fL (80-94); Mean Platelet Volume 8.4 fL (7.4-10.4); Nucleated Red Blood Cells % 0; Platelet Count 272 10^3/ul (150-450); Red Cell Distribution Width 13 % (10.5-15); White Blood Count 10.2 10^3/ul (3.5-10.8)
[2018-05-01 06:20] LABS: Albumin 3.6 g/dL (3.2-5.2); Albumin/Globulin Ratio 1.2 (1-3); BUN/Creatinine Ratio 18.6 (8-20); EGFR African American 113.9 (>60); EGFR Non-African American 94.1 (>60); Magnesium 1.9 mg/dL (1.9-2.7); Phosphorus 2.9 mg/dL (2.5-5.0); Potassium 3.8 mmol/L (3.5-5.0); Total Bilirubin 0.4 mg/dL (0.2-1.0); Total Protein 6.6 g/dL (6.4-8.9)
[2018-05-01] MEDS ORDERED: Potassium Chlor TAB* 20 MEQ TAB.ER PO ONE (09:00)
[2018-05-01] MEDS ORDERED: amLODIPine TAB* 5 MG PO SCH (09:00)
[2018-05-01] MEDS ORDERED: Pneumococcal *Vac Polyvalent 0.5 ML VIAL IM ONE (09:00)
[2018-05-01] MEDS: Ticagrelor* 90 MG TAB PO SCH ×2 (09:30→21:38)
[2018-05-01] MEDS: Captopril TAB* 12.5 MG PO SCH ×3 (09:30→21:38)
[2018-05-01] MEDS: GuaiFENesin DM* 5 ML UDC PO PRN (09:30)
[2018-05-01] MEDS: busPIRone TAB* 15 MG PO SCH ×2 (09:30→21:37)
[2018-05-01] MEDS: Insulin LISPRO* 1 UNITS UNIT SUBCUT SCH ×4 (09:30→21:38)
[2018-05-01] MEDS: Aspirin 81 mg CHEW TAB* 81 MG TAB.CHEW PO SCH (09:31)
[2018-05-01] MEDS: Pantoprazole TAB * 40 MG TAB PO SCH (09:31)
[2018-05-01] MEDS: Nicotine PATCH 21 MG/24 HR* PATCH TRANSDERM SCH (09:55)
[2018-05-01] MEDS ORDERED: hydrOXYzine HCL TAB* 50 MG PO PRN (10:30)
[2018-05-01] MEDS: Metoprolol Succinate XL TAB* 50 MG PO SCH (11:21)
[2018-05-01] MEDS ORDERED: Furosemide TAB* 20 MG PO ONE (12:14)
--- NOTE | 2018-05-01 14:22 | PN ---
Subjective Date of Service: 05/01/18 Interval History: Pt seen and examined. Meds and labs reviewed. CC: N/A ROS: Denied RAPP/dizziness, F/C, N/V, CP, SOB, increased cough, sputum production , abd pain, diarrhea, constipation, dysuria, myalgias, arthralgias, throat pain , and new skin lesions. The rest of the 14 point ROS are unremarkable. PHYSICAL EXAM: GEN APPEARANCE: Awake, not in acute distress HEENT: NC/AT, PERRLA, moist oral mucosa, (-) throat erythema NECK: Soft, supple, (-) cervical LAD, (-)JVD HEART: S1S2 WNL, RRR, No MRG CHEST: CTA, BL, GAE, No W/R/R ABD: Soft, ND/NT, NABS 4x Q EXT: No C/C/E SKIN: Warm to touch PSYCH: No active psychosis, hallucinations, depression, SI/HI Objective Active Medications: Acetaminophen (Tylenol Tab*) 650 mg PO Q4H PRN PRN Reason: HEADACHE/PAIN Aspirin (Aspirin 81 Mg Chew Tab*) 81 mg PO DAILY [facility] Last Admin: 05/01/18 09:31 Dose: 81 mg Atorvastatin Calcium (Lipitor*) 80 mg PO 1700 [facility] Last Admin: 04/30/18 16:30 Dose: 80 mg Buspirone HCl (Buspar Tab *) 15 mg PO BID [facility] Last Admin: 05/01/18 09:30 Dose: 15 mg Captopril (Capoten Tab*) 6.25 mg PO TID [facility] Last Admin: 05/01/18 14:09 Dose: 6.25 mg Dextrose (D50w Syringe 50 Ml*) 12.5 gm IV PUSH .FOR FS < 60 - SS PRN PRN Reason: FS < 60 Guaifenesin/Dextromethorphan (Robitussin Dm*) 5 ml PO Q4H PRN PRN Reason: COUGH Last Admin: 05/01/18 09:30 Dose: 5 ml Heparin Sodium (Porcine) (Heparin Vial(*)) 5,000 units SUBCUT Q8HR [facility] Hydroxyzine HCl (Atarax Tab*) 50 mg PO Q6H PRN PRN Reason: NEEDED FOR ANXIETY,RESTLESS Insulin Human Lispro (Humalog*) 0 units SUBCUT [facility]; Protocol Metoprolol Succinate (Toprol Xl Tab*) 50 mg PO DAILY [facility] Last Admin: 05/01/18 11:21 Dose: Not Given Mirtazapine (Remeron Tab*) 30 mg PO BEDTIME [facility] Last Admin: 04/30/18 21:13 Dose: 30 mg Mometasone Furoate/Formoterol Fumar (Dulera 200/5 Mdi*) 2 puff INH BID [facility] Morphine Sulfate (Morphine Vial*) 0.5 mg IV Q6H PRN PRN Reason: PAIN Nitroglycerin (Nitroglycerin Tab 0.4 Mg*) 0.4 mg SL Q5M PRN PRN Reason: ANGINA Pantoprazole Sodium (Protonix Tab *) 40 mg PO DAILY [facility] Last Admin: 05/01/18 09:31 Dose: 40 mg Ticagrelor (Brilinta*) 90 mg PO BID [facility] Last Admin: 05/01/18 09:30 Dose: 90 mg Vital Signs - 8 hr 05/01/18 05/01/18 05/01/18 06:30 06:45 07:00 Temperature Pulse Rate 91 92 91 Respiratory 20 Rate Blood Pressure 107/77 111/77 111/77 (mmHg) O2 Sat by Pulse 94 95 94 Oximetry 05/01/18 05/01/18 05/01/18 07:01 07:15 07:30 Temperature Pulse Rate 91 92 92 Respiratory 22 20 Rate Blood Pressure 108/81 104/76 (mmHg) O2 Sat by Pulse 92 97 97 Oximetry 05/01/18 05/01/18 05/01/18 07:45 07:50 08:00 Temperature 97.9 F Pulse Rate 91 93 Respiratory 21 21 Rate Blood Pressure 107/78 104/76 (mmHg) O2 Sat by Pulse 93 93 Oximetry 05/01/18 05/01/18 05/01/18 08:01 08:10 08:15 Temperature Pulse Rate 92 94 Respiratory 19 20 21 Rate Blood Pressure 102/73 (mmHg) O2 Sat by Pulse 94 93 Oximetry 05/01/18 05/01/18 05/01/18 08:30 08:45 09:00 Temperature Pulse Rate 94 93 98 Respiratory 24 15 21 Rate Blood Pressure 92/66 107/81 91/72 (mmHg) O2 Sat by Pulse 95 95 98 Oximetry 05/01/18 05/01/18 05/01/18 09:01 09:15 09:30 Temperature Pulse Rate 99 99 Respiratory 18 21 22 Rate Blood Pressure 108/79 (mmHg) O2 Sat by Pulse 95 97 Oximetry 05/01/18 05/01/18 05/01/18 09:32 09:45 10:00 Temperature Pulse Rate 101 105 101 Respiratory 24 26 20 Rate Blood Pressure 103/73 120/85 98/70 (mmHg) O2 Sat by Pulse 94 96 92 Oximetry 05/01/18 05/01/18 05/01/18 10:01 10:15 10:30 Temperature Pulse Rate 98 102 100 Respiratory 15 30 18 Rate Blood Pressure 97/64 77/47 (mmHg) O2 Sat by Pulse 94 91 95 Oximetry 05/01/18 05/01/18 05/01/18 10:31 10:37 10:38 Temperature Pulse Rate 103 Respiratory 22 17 Rate Blood Pressure 82/44 92/58 (mmHg) O2 Sat by Pulse 95 Oximetry 05/01/18 05/01/18 05/01/18 10:45 11:00 11:01 Temperature Pulse Rate 100 99 97 Respiratory 24 17 22 Rate Blood Pressure 91/62 93/64 (mmHg) O2 Sat by Pulse 94 93 94 Oximetry 05/01/18 05/01/18 05/01/18 11:15 11:30 11:45 Temperature Pulse Rate 107 95 93 Respiratory 23 20 20 Rate Blood Pressure 97/59 96/73 94/65 (mmHg) O2 Sat by Pulse 95 95 95 Oximetry 05/01/18 05/01/18 05/01/18 11:50 12:00 12:01 Temperature 97.2 F Pulse Rate 94 94 Respiratory 18 20 21 Rate Blood Pressure 101/69 (mmHg) O2 Sat by Pulse 95 93 Oximetry 05/01/18 05/01/18 05/01/18 12:15 13:00 13:02 Temperature Pulse Rate 98 97 98 Respiratory 16 15 25 Rate Blood Pressure 98/71 104/70 (mmHg) O2 Sat by Pulse 97 97 96 Oximetry 05/01/18 05/01/18 05/01/18 13:15 13:30 14:00 Temperature Pulse Rate 100 101 105 Respiratory 16 18 15 Rate Blood Pressure 97/60 116/75 (mmHg) O2 Sat by Pulse 96 97 97 Oximetry 05/01/18 14:08 Temperature Pulse Rate Respiratory 21 Rate Blood Pressure (mmHg) O2 Sat by Pulse Oximetry Oxygen Devices in Use Now: Nasal Cannula Result Diagrams: 01/10/19 05:55 05/01/18 05:55 Microbiology and Other Data: Microbiology 04/30/18 10:20 Influenza Types A,B Antigen - Final Nasal Specimen received for Influenza A/B Molecular testing Assess/Plan/Problems-Billing Assessment: - Patient Problems (1) NSTEMI (non-ST elevated myocardial infarction) Current Visit: Yes Status: Acute Code(s): I21.4 - NON-ST ELEVATION (NSTEMI) MYOCARDIAL INFARCTION SNOMED Code(s): 10846323 Comment: -S/P ROXIE placed in L. Cx POD#1 -Diuretics D/Cd -Question of lesion in LAD that will need re-eval?? Will defer with Cards -On ASA, Brilinta, Atorvastatin, Captopril, and Metoprolol -Now off Heparin gtt -Per request of Cards will D/C Nicotine replacement given it may theoretically cause vasoconstriction and instead will place pt on Hydroxyzine PRN for Anxiety/ irritability (2) GERD (gastroesophageal reflux disease) Current Visit: Yes Status: Acute Code(s): K21.9 - GASTRO-ESOPHAGEAL REFLUX DISEASE WITHOUT ESOPHAGITIS SNOMED Code(s): 122424637 Comment: -Continue Pantoprazole (3) Diabetes 1.5, managed as type 2 Current Visit: Yes Status: Acute Code(s): E13.9 - OTHER SPECIFIED DIABETES MELLITUS WITHOUT COMPLICATIONS SNOMED Code(s): 200910233 Comment: -Uncontrolled -Will adjust ISS as ordered -Continue to hold Metformin -Continue Heart healthy diet -Will also place pt on Consistent carbohydrate diet (4) DVT prophylaxis Current Visit: Yes Status: Acute Code(s): TDP3581 - SNOMED Code(s): 142061402 Comment: -Will place pt on SQ Heparin Status and Disposition: -Asa above -Defer repeat LHC if needed to Cards
[2018-05-01] MEDS ORDERED: Atorvastatin* 80 MG TAB PO SCH (17:00)
[2018-05-01] MEDS: Atorvastatin* 80 MG TAB PO SCH (18:01)
[2018-05-01] MEDS: Mometasone/Formoter 200/5 MDI INH SCH (20:07)
[2018-05-01] MEDS ORDERED: Nicotine Patch Removal NOTE PATCH OFF SCH (21:00)
[2018-05-01] MEDS: Heparin VIAL(*) 5000 UNITS/ML VIAL (FIVE THOUSAND) SUBCUT SCH (21:37)
[2018-05-01] MEDS: Mirtazapine TAB* 15 MG PO SCH (21:37)
[2018-05-01] MEDS: Nicotine Patch Removal NOTE PATCH OFF SCH (21:42)
[2018-05-02 05:26] LABS: ABS Basophils 0.1 10^3/ul (0-0.2); ABS Eosinophils 0.5 10^3/ul (0-0.6); ABS Lymphocytes 1.9 10^3/ul (1.0-4.8); ABS Monocytes 0.8 10^3/ul (0-0.8); ABS Neutrophils 4.5 10^3/ul (1.5-7.7); ABS Nucleated RBC 0 10^3/ul; Eosinophil % 5.8 %; Hematocrit 41 % (42-52); Lymphocyte % 24.2 %; Mean Corpuscular HGB Conc 34 g/dl (31-36); Mean Corpuscular Hemoglobin 31 pg (27-31); Mean Corpuscular Volume 90 fL (80-94); Mean Platelet Volume 8.1 fL (7.4-10.4); Nucleated Red Blood Cells % 0; Platelet Count 252 10^3/ul (150-450); Red Blood Count 4.53 10^6/ul (4.00-5.40); Red Cell Distribution Width 13 % (10.5-15); White Blood Count 7.8 10^3/ul (3.5-10.8)
[2018-05-02 05:43] LABS: Albumin 3.8 g/dL (3.2-5.2); Albumin/Globulin Ratio 1.6 (1-3); BUN/Creatinine Ratio 23.8 (8-20); Calcium 9.1 mg/dL (8.6-10.3); EGFR Non-African American 96.7 (>60); Globulin 2.4 g/dL (2-4); Magnesium 1.8 mg/dL (1.9-2.7); Phosphorus 3.7 mg/dL (2.5-5.0); Potassium 4.3 mmol/L (3.5-5.0); Total Bilirubin 0.3 mg/dL (0.2-1.0); Total Protein 6.2 g/dL (6.4-8.9)
[2018-05-02] MEDS: Insulin LISPRO* 1 UNITS UNIT SUBCUT SCH ×4 (07:57→21:49)
[2018-05-02] MEDS: Metoprolol Succinate XL TAB* 50 MG PO SCH (08:07)
[2018-05-02] MEDS: Captopril TAB* 12.5 MG PO SCH ×3 (08:07→21:51)
[2018-05-02] MEDS: busPIRone TAB* 15 MG PO SCH ×2 (08:07→21:49)
[2018-05-02] MEDS: Aspirin 81 mg CHEW TAB* 81 MG TAB.CHEW PO SCH (08:08)
[2018-05-02] MEDS: Ticagrelor* 90 MG TAB PO SCH ×2 (08:08→21:50)
[2018-05-02] MEDS: Pantoprazole TAB * 40 MG TAB PO SCH (08:08)
[2018-05-02] MEDS: Nicotine PATCH 21 MG/24 HR* PATCH TRANSDERM SCH (08:08)
[2018-05-02] MEDS ORDERED: Magnesium Sulfate 2 GM IV* 2 GM/50 ML BAG IVPB ONE (08:17)
[2018-05-02] MEDS ORDERED: Nicotine PATCH 21 MG/24 HR* PATCH TRANSDERM SCH (09:00)
[2018-05-02] MEDS: Mometasone/Formoter 200/5 MDI INH SCH ×2 (11:03→19:56)
[2018-05-02] MEDS: Heparin VIAL(*) 5000 UNITS/ML VIAL (FIVE THOUSAND) SUBCUT SCH ×3 (13:34→21:51)
--- NOTE | 2018-05-02 15:32 | PN ---
Subjective Date of Service: 05/02/18 Interval History: Pt seen and examined. Meds and labs reviewed. CC: N/A ROS: Denied RAPP/dizziness, F/C, N/V, CP, SOB, increased cough, sputum production , abd pain, diarrhea, constipation, dysuria, myalgias, arthralgias, throat pain , and new skin lesions. The rest of the 14 point ROS are unremarkable. PHYSICAL EXAM: GEN APPEARANCE: Awake, not in acute distress HEENT: NC/AT, PERRLA, moist oral mucosa, (-) throat erythema NECK: Soft, supple, (-) cervical LAD, (-)JVD HEART: S1S2 WNL, RRR, No MRG CHEST: CTA, BL, GAE, No W/R/R ABD: Soft, ND/NT, NABS 4x Q EXT: No C/C/E SKIN: Warm to touch PSYCH: No active psychosis, hallucinations, depression, SI/HI Objective Active Medications: Acetaminophen (Tylenol Tab*) 650 mg PO Q4H PRN PRN Reason: HEADACHE/PAIN Aspirin (Aspirin 81 Mg Chew Tab*) 81 mg PO DAILY [facility] Last Admin: 05/02/18 08:08 Dose: 81 mg Atorvastatin Calcium (Lipitor*) 80 mg PO 1700 [facility] Last Admin: 05/01/18 18:01 Dose: 80 mg Buspirone HCl (Buspar Tab *) 15 mg PO BID [facility] Last Admin: 05/02/18 08:07 Dose: 15 mg Captopril (Capoten Tab*) 6.25 mg PO TID [facility] Last Admin: 05/02/18 13:35 Dose: 6.25 mg Dextrose (D50w Syringe 50 Ml*) 12.5 gm IV PUSH .FOR FS < 60 - SS PRN PRN Reason: FS < 60 Guaifenesin/Dextromethorphan (Robitussin Dm*) 5 ml PO Q4H PRN PRN Reason: COUGH Last Admin: 05/01/18 09:30 Dose: 5 ml Heparin Sodium (Porcine) (Heparin Vial(*)) 5,000 units SUBCUT Q8HR [facility] Last Admin: 05/02/18 13:34 Dose: 5,000 units Hydroxyzine HCl (Atarax Tab*) 50 mg PO Q6H PRN PRN Reason: NEEDED FOR ANXIETY,RESTLESS Insulin Glargine (Lantus(*)) 8 units SUBCUT Q24H [facility] Insulin Human Lispro (Humalog*) 0 units SUBCUT ACHS [facility]; Protocol Last Admin: 05/02/18 13:34 Dose: 15 unit Metoprolol Succinate (Toprol Xl Tab*) 50 mg PO DAILY [facility] Last Admin: 05/02/18 08:07 Dose: 50 mg Mirtazapine (Remeron Tab*) 30 mg PO BEDTIME [facility] Last Admin: 05/01/18 21:37 Dose: 30 mg Mometasone Furoate/Formoterol Fumar (Dulera 200/5 Mdi*) 2 puff INH BID [facility] Last Admin: 05/02/18 11:03 Dose: 2 puff Morphine Sulfate (Morphine Vial*) 0.5 mg IV Q6H PRN PRN Reason: PAIN Nicotine (Nicotine Patch 21 Mg/24 Hr*) 1 patch TRANSDERM DAILY [facility] Last Admin: 05/02/18 08:08 Dose: 1 patch Nitroglycerin (Nitroglycerin Tab 0.4 Mg*) 0.4 mg SL Q5M PRN PRN Reason: ANGINA Pantoprazole Sodium (Protonix Tab *) 40 mg PO DAILY [facility] Last Admin: 05/02/18 08:08 Dose: 40 mg Pharmacy Profile Note (Nicotine Patch Removal Note*) 1 note PATCH OFF 2100 [facility] Last Admin: 05/01/18 21:42 Dose: 1 note Ticagrelor (Brilinta*) 90 mg PO BID [facility] Last Admin: 05/02/18 08:08 Dose: 90 mg Vital Signs - 8 hr 05/02/18 05/02/18 05/02/18 08:00 08:01 08:30 Temperature 97.9 F Pulse Rate 92 94 99 Respiratory 18 20 19 Rate Blood Pressure 130/78 104/78 (mmHg) O2 Sat by Pulse 96 94 97 Oximetry 05/02/18 05/02/18 05/02/18 09:00 09:30 10:00 Temperature Pulse Rate 101 97 96 Respiratory 21 18 28 Rate Blood Pressure 105/72 96/73 (mmHg) O2 Sat by Pulse 97 98 97 Oximetry 05/02/18 05/02/18 05/02/18 10:01 10:30 11:00 Temperature Pulse Rate 99 98 Respiratory 20 24 24 Rate Blood Pressure 110/83 104/69 (mmHg) O2 Sat by Pulse 98 94 Oximetry 05/02/18 05/02/18 05/02/18 11:11 11:13 11:38 Temperature 97.7 F Pulse Rate Respiratory 14 20 Rate Blood Pressure 118/87 (mmHg) O2 Sat by Pulse Oximetry 05/02/18 05/02/18 05/02/18 11:55 12:03 13:00 Temperature Pulse Rate Respiratory 20 21 21 Rate Blood Pressure (mmHg) O2 Sat by Pulse Oximetry Oxygen Devices in Use Now: None Result Diagrams: 05/02/18 05:17 05/02/18 05:17 Microbiology and Other Data: Microbiology 04/30/18 10:20 Influenza Types A,B Antigen - Final Nasal Specimen received for Influenza A/B Molecular testing Assess/Plan/Problems-Billing Assessment: - Patient Problems (1) NSTEMI (non-ST elevated myocardial infarction) Current Visit: Yes Status: Acute Code(s): I21.4 - NON-ST ELEVATION (NSTEMI) MYOCARDIAL INFARCTION SNOMED Code(s): 92995250 Comment: -S/P ROXIE placed in L. Cx POD#2 -Question of lesion in LAD 50% lesion; per Dr. Parikh will defer re-eval at this time and likely low risk; may consider re-eval in the future if develops angina -Continue ASA, Brilinta, Atorvastatin, Captopril, and Metoprolol (2) GERD (gastroesophageal reflux disease) Current Visit: Yes Status: Acute Code(s): K21.9 - GASTRO-ESOPHAGEAL REFLUX DISEASE WITHOUT ESOPHAGITIS SNOMED Code(s): 686550862 Comment: -Continue Pantoprazole (3) Diabetes 1.5, managed as type 2 Current Visit: Yes Status: Acute Code(s): E13.9 - OTHER SPECIFIED DIABETES MELLITUS WITHOUT COMPLICATIONS SNOMED Code(s): 672239996 Comment: -Uncontrolled -Will place on low dose Lantus -Continue to hold Metformin -Continue Heart healthy diet -Continue Consistent carbohydrate diet -Check Hba1c in AM (4) DVT prophylaxis Current Visit: Yes Status: Acute Code(s): NQB2418 - SNOMED Code(s): 534406419 Comment: -Will place pt on SQ Heparin Status and Disposition: -As above -D/W Dr. Parikh and per current guidelines pt will need to stay for at least 72 hrs -Transfer to /[facility]
[2018-05-02] MEDS ORDERED: Insulin GLARGINE(*) 1 UNITS UNIT SUBCUT SCH (16:00)
[2018-05-02] MEDS: Atorvastatin* 80 MG TAB PO SCH (16:15)
[2018-05-02] MEDS: Mirtazapine TAB* 15 MG PO SCH (21:50)
[2018-05-02] MEDS: Nicotine Patch Removal NOTE PATCH OFF SCH (21:55)
[2018-05-03] MEDS: Heparin VIAL(*) 5000 UNITS/ML VIAL (FIVE THOUSAND) SUBCUT SCH ×3 (05:27→21:11)
[2018-05-03 06:55] LABS: ABS Basophils 0.1 10^3/ul (0-0.2); ABS Eosinophils 0.5 10^3/ul (0-0.6); ABS Lymphocytes 2.4 10^3/ul (1.0-4.8); ABS Monocytes 0.8 10^3/ul (0-0.8); ABS Neutrophils 7.1 10^3/ul (1.5-7.7); ABS Nucleated RBC 0 10^3/ul; Eosinophil % 4.5 %; Hematocrit 41 % (42-52); Hemoglobin 14.5 g/dl (14.0-18.0); Lymphocyte % 21.9 %; Mean Corpuscular HGB Conc 35 g/dl (31-36); Mean Corpuscular Hemoglobin 31 pg (27-31); Mean Corpuscular Volume 88 fL (80-94); Mean Platelet Volume 7.9 fL (7.4-10.4); Nucleated Red Blood Cells % 0; Platelet Count 283 10^3/ul (150-450); Red Blood Count 4.67 10^6/ul (4.00-5.40); Red Cell Distribution Width 13 % (10.5-15); White Blood Count 10.9 10^3/ul (3.5-10.8)
[2018-05-03 07:11] LABS: Albumin 3.7 g/dL (3.2-5.2); Albumin/Globulin Ratio 1.2 (1-3); BUN/Creatinine Ratio 28.4 (8-20); Calcium 9.5 mg/dL (8.6-10.3); EGFR African American 135.5 (>60); Globulin 3.1 g/dL (2-4); Phosphorus 4.7 mg/dL (2.5-5.0); Potassium 4.6 mmol/L (3.5-5.0); Total Bilirubin 0.3 mg/dL (0.2-1.0); Total Protein 6.8 g/dL (6.4-8.9)
[2018-05-03] MEDS: Nicotine PATCH 21 MG/24 HR* PATCH TRANSDERM SCH (08:17)
[2018-05-03] MEDS: busPIRone TAB* 15 MG PO SCH ×2 (08:17→21:07)
[2018-05-03] MEDS: Insulin LISPRO* 1 UNITS UNIT SUBCUT SCH ×4 (08:17→21:08)
[2018-05-03] MEDS: Pantoprazole TAB * 40 MG TAB PO SCH (08:18)
[2018-05-03] MEDS: Captopril TAB* 12.5 MG PO SCH ×3 (08:18→21:08)
[2018-05-03] MEDS: Metoprolol Succinate XL TAB* 50 MG PO SCH (08:18)
[2018-05-03] MEDS: Ticagrelor* 90 MG TAB PO SCH ×2 (08:18→21:08)
[2018-05-03] MEDS: Aspirin 81 mg CHEW TAB* 81 MG TAB.CHEW PO SCH (08:18)
[2018-05-03] MEDS: Mometasone/Formoter 200/5 MDI INH SCH ×2 (08:51→20:18)
[2018-05-03] MEDS ORDERED: Insulin GLARGINE(*) 1 UNITS UNIT SUBCUT SCH ×2 (10:17→16:00)
--- NOTE | 2018-05-03 12:48 | PN ---
Subjective Date of Service: 05/03/18 Interval History: Pt seen and examined. Meds and labs reviewed. CC: N/A ROS: Denied RAPP/dizziness, F/C, N/V, CP, SOB, increased cough, sputum production , abd pain, diarrhea, constipation, dysuria, myalgias, arthralgias, throat pain , and new skin lesions. The rest of the 14 point ROS are unremarkable. PHYSICAL EXAM: GEN APPEARANCE: Awake, not in acute distress HEENT: NC/AT, PERRLA, moist oral mucosa, (-) throat erythema NECK: Soft, supple, (-) cervical LAD, (-)JVD HEART: S1S2 WNL, RRR, No MRG CHEST: CTA, BL, GAE, No W/R/R ABD: Soft, ND/NT, NABS 4x Q EXT: No C/C/E SKIN: Warm to touch PSYCH: No active psychosis, hallucinations, depression, SI/HI Objective Active Medications: Acetaminophen (Tylenol Tab*) 650 mg PO Q4H PRN PRN Reason: HEADACHE/PAIN Aspirin (Aspirin 81 Mg Chew Tab*) 81 mg PO DAILY [facility] Last Admin: 05/03/18 08:18 Dose: 81 mg Atorvastatin Calcium (Lipitor*) 80 mg PO 1700 [facility] Last Admin: 05/02/18 16:15 Dose: 80 mg Buspirone HCl (Buspar Tab *) 15 mg PO BID [facility] Last Admin: 05/03/18 08:17 Dose: 15 mg Captopril (Capoten Tab*) 12.5 mg PO TID [facility] Last Admin: 05/03/18 08:18 Dose: 12.5 mg Dextrose (D50w Syringe 50 Ml*) 12.5 gm IV PUSH .FOR FS < 60 - SS PRN PRN Reason: FS < 60 Guaifenesin/Dextromethorphan (Robitussin Dm*) 5 ml PO Q4H PRN PRN Reason: COUGH Last Admin: 05/01/18 09:30 Dose: 5 ml Heparin Sodium (Porcine) (Heparin Vial(*)) 5,000 units SUBCUT Q8HR [facility] Last Admin: 05/03/18 05:27 Dose: 5,000 units Hydroxyzine HCl (Atarax Tab*) 50 mg PO Q6H PRN PRN Reason: NEEDED FOR ANXIETY,RESTLESS Insulin Glargine (Lantus(*)) 8 units SUBCUT Q24H [facility] Last Admin: 05/02/18 16:15 Dose: 8 unit Insulin Human Lispro (Humalog*) 0 units SUBCUT ACHS [facility]; Protocol Last Admin: 05/03/18 08:17 Dose: 3 unit Metoprolol Succinate (Toprol Xl Tab*) 50 mg PO DAILY [facility] Last Admin: 05/03/18 08:18 Dose: 50 mg Mirtazapine (Remeron Tab*) 30 mg PO BEDTIME [facility] Last Admin: 05/02/18 21:50 Dose: 30 mg Mometasone Furoate/Formoterol Fumar (Dulera 200/5 Mdi*) 2 puff INH BID [facility] Last Admin: 05/03/18 08:51 Dose: 2 puff Morphine Sulfate (Morphine Vial*) 0.5 mg IV Q6H PRN PRN Reason: PAIN Nicotine (Nicotine Patch 21 Mg/24 Hr*) 1 patch TRANSDERM DAILY [facility] Last Admin: 05/03/18 08:17 Dose: 1 patch Nitroglycerin (Nitroglycerin Tab 0.4 Mg*) 0.4 mg SL Q5M PRN PRN Reason: ANGINA Pantoprazole Sodium (Protonix Tab *) 40 mg PO DAILY [facility] Last Admin: 05/03/18 08:18 Dose: 40 mg Pharmacy Profile Note (Nicotine Patch Removal Note*) 1 note PATCH OFF 2100 [facility] Last Admin: 05/02/18 21:55 Dose: 1 note Ticagrelor (Brilinta*) 90 mg PO BID [facility] Last Admin: 05/03/18 08:18 Dose: 90 mg Vital Signs - 8 hr 05/03/18 05/03/18 05/03/18 03:46 04:00 07:06 Temperature 97.7 F Pulse Rate 87 86 Respiratory 16 17 Rate Blood Pressure 118/75 (mmHg) O2 Sat by Pulse 98 Oximetry 05/03/18 05/03/18 07:08 08:53 Temperature 97.0 F Pulse Rate 93 90 Respiratory 16 18 Rate Blood Pressure 107/86 (mmHg) O2 Sat by Pulse 96 96 Oximetry Oxygen Devices in Use Now: None Result Diagrams: 05/03/18 06:47 05/03/18 06:47 Microbiology and Other Data: Microbiology 04/30/18 10:20 Influenza Types A,B Antigen - Final Nasal Specimen received for Influenza A/B Molecular testing Assess/Plan/Problems-Billing Assessment: - Patient Problems (1) NSTEMI (non-ST elevated myocardial infarction) Current Visit: Yes Status: Acute Code(s): I21.4 - NON-ST ELEVATION (NSTEMI) MYOCARDIAL INFARCTION SNOMED Code(s): 52520611 Comment: -S/P ROXIE placed in L. Cx POD#3 -Question of lesion in LAD 50% lesion; per Dr. Parikh will defer re-eval at this time and likely low risk; may consider re-eval in the future if develops angina -Continue ASA, Brilinta, Atorvastatin, Captopril, and Metoprolol (2) GERD (gastroesophageal reflux disease) Current Visit: Yes Status: Acute Code(s): K21.9 - GASTRO-ESOPHAGEAL REFLUX DISEASE WITHOUT ESOPHAGITIS SNOMED Code(s): 400912775 Comment: -Continue Pantoprazole (3) Diabetes 1.5, managed as type 2 Current Visit: Yes Status: Acute Code(s): E13.9 - OTHER SPECIFIED DIABETES MELLITUS WITHOUT COMPLICATIONS SNOMED Code(s): 778434131 Comment: -Uncontrolled -Will increase Lantus as prescribed -Continue to hold Metformin -Continue Heart healthy diet -Continue Consistent carbohydrate diet -Awaiting Hba1c result (4) DVT prophylaxis Current Visit: Yes Status: Acute Code(s): GLT0870 - SNOMED Code(s): 149833150 Comment: -Continue SQ Heparin Status and Disposition: -As above -D/W Dr. Parikh and per current guidelines pt will need to stay for at least 72 hrs -For possible D/C in AM
[2018-05-03] MEDS: Atorvastatin* 80 MG TAB PO SCH (17:05)
[2018-05-03] MEDS: Mirtazapine TAB* 15 MG PO SCH (21:07)
[2018-05-03] MEDS: Nicotine Patch Removal NOTE PATCH OFF SCH (21:11)
[2018-05-04] MEDS: Heparin VIAL(*) 5000 UNITS/ML VIAL (FIVE THOUSAND) SUBCUT SCH ×2 (05:52→14:37)
[2018-05-04 07:40] LABS: ABS Basophils 0.1 10^3/ul (0-0.2); ABS Eosinophils 0.5 10^3/ul (0-0.6); ABS Lymphocytes 2.6 10^3/ul (1.0-4.8); ABS Monocytes 0.7 10^3/ul (0-0.8); ABS Neutrophils 5.7 10^3/ul (1.5-7.7); ABS Nucleated RBC 0 10^3/ul; Eosinophil % 5.1 %; Hematocrit 43 % (42-52); Lymphocyte % 27.4 %; Mean Corpuscular HGB Conc 35 g/dl (31-36); Mean Corpuscular Hemoglobin 31 pg (27-31); Mean Corpuscular Volume 90 fL (80-94); Mean Platelet Volume 8.2 fL (7.4-10.4); Nucleated Red Blood Cells % 0.1; Platelet Count 315 10^3/ul (150-450); Red Blood Count 4.83 10^6/ul (4.00-5.40); Red Cell Distribution Width 13 % (10.5-15); White Blood Count 9.4 10^3/ul (3.5-10.8)
[2018-05-04 07:49] LABS: Calcium 9.7 mg/dL (8.6-10.3); EGFR African American 123.8 (>60); EGFR Non-African American 102.3 (>60); Potassium 4.6 mmol/L (3.5-5.0)
[2018-05-04] MEDS: Aspirin 81 mg CHEW TAB* 81 MG TAB.CHEW PO SCH (07:59)
[2018-05-04] MEDS: Ticagrelor* 90 MG TAB PO SCH (07:59)
[2018-05-04] MEDS: Pantoprazole TAB * 40 MG TAB PO SCH (07:59)
[2018-05-04] MEDS: Insulin LISPRO* 1 UNITS UNIT SUBCUT SCH ×2 (07:59→12:29)
[2018-05-04] MEDS: Metoprolol Succinate XL TAB* 50 MG PO SCH (07:59)
[2018-05-04] MEDS: busPIRone TAB* 15 MG PO SCH (07:59)
[2018-05-04] MEDS: Nicotine PATCH 21 MG/24 HR* PATCH TRANSDERM SCH (07:59)
[2018-05-04] MEDS ORDERED: Lisinopril TAB* 10 MG PO SCH (09:00)
[2018-05-04] MEDS: Mometasone/Formoter 200/5 MDI INH SCH (09:14)
[2018-05-04 12:36] VITALS: BP 103/75
--- NOTE | 2018-05-04 20:28 | DS ---
CC: Dr. Fam Ladd; Dr. Wandy Mcneil; Dr. Parikh. * DISCHARGE SUMMARY: DATE OF ADMISSION: 04/30/18 DATE OF DISCHARGE: 05/04/18 DISCHARGE DIAGNOSES: 1. [id number] myocardial infarction status post drug-eluting stent placement via PCI in the left circumflex by Dr. Parikh. 2. Gastroesophageal reflux disease. 3. Uncontrolled diabetes mellitus, improved. DISCHARGE MEDICATIONS: 1. Aspirin 81 mg p.o. q. daily. 2. Atorvastatin 80 mg p.o. q. daily. 3. Buspirone 15 mg p.o. b.i.d. 4. Lisinopril 10 mg p.o. q. daily. 5. Metoprolol succinate 50 mg p.o. q. daily. 6. Mirtazapine 30 mg p.o. q.h.s. 7. Nicotine patch 21 mg patch for a 24-hour period q. daily. 8. Pantoprazole 40 mg p.o. q. daily. 9. Ticagrelor or Brilinta 90 mg p.o. b.i.d. 10. Cetirizine 10 mg p.o. q. daily. 11. Lantus SoloSTAR 10 units subcu q. daily. 12. Metformin ER 2000 mg p.o. q. daily. HISTORY OF PRESENT ILLNESS: The patient is a 52-year-old gentleman with history of anxiety, diabetes previously not insulin requiring, as well as hypertension who started having some cough and shortness of breath that was more pronounced with exertion for the past 2 weeks. He was admitted for chest pain, shortness of breath with a suspicion for NSTEMI versus unstable angina given he was also complaining of some shortness of breath at rest during admission and was placed on heparin drip and was found to have increasing troponins where NSTEMI was confirmed. He was also seen in consultation by Dr. Parikh who appropriately did a catheterization where subsequently he received the drug-eluting stent in the left circumflex and was placed on an MIGUEL inhibitor as well as beta-farhan as well as a maximum dose of atorvastatin prior to his discharge. He was observed for 72 hours post PCI and patient has been stable. He will be discharged home improved. He had been advised to follow up and/or call his PCP within 3 days post discharge and to follow up with Dr. Parikh and to call his office to make/confirm an appointment. He was informed that his HbA1c was drawn, but still currently pending prior to his discharge and to ask his PCP to follow up on this result. He was also informed that given his fingersticks have been elevated in the high 180s to 300 while on insulin in the hospital that he will be discharged on low-dose low-acting insulin. He was advised to continue taking his metformin as prescribed. He was advised to make sure to check his fingersticks at least 3 times a day before meals and to discuss his diabetic management with his PCP. He was advised to write down the times he took his fingersticks and to show this data to his PCP on followup. If his symptoms resume or develop new ones or feel unwell for any reason, he was advised to call his PCP and if he cannot be entertained due to scheduling issues alone he was advised to call [facility] if the issue is nonemergent. He was advised to call my office regarding any questions, concerns or further clarifications regarding his discharge plans and/or prescription and he was advised to take his medications as prescribed. REVIEW OF SYSTEMS: The patient denied any current headache, dizziness, fevers, chills, nausea, vomiting, chest pain, shortness of breath, increased cough or sputum production, abdominal pain, diarrhea, constipation, pain and/or increased frequency on urination, myalgias, arthralgias, throat pain, or new skin lesions. The rest of the 14-point review of systems are otherwise unremarkable. PHYSICAL EXAM: Shows the most recent vital signs of records with blood pressure of 103/75, 98.5 degrees Fahrenheit, 98 per minute heart rate, 16 per minute respiratory rate, saturating at 98% on room air. General Appearance: The patient is awake, alert and oriented x3, not in acute distress. HEENT: Normocephalic, atraumatic. PERRLA. Extraocular muscles intact. Negative for icterus. Moist oral mucosa, negative throat erythema. Neck is soft, supple with no cervical lymphadenopathy. No JVD. Heart: S1, S2 within normal limits. Regular rate and rhythm. No murmurs, rubs or gallops. Chest is clear to auscultation bilaterally. Good air entry. No wheezes, rales or rhonchi. Abdomen is soft, nondistended, nontender. Normoactive bowel sounds x4 quadrants. Extremities: No cyanosis, clubbing or edema. Psychiatric: No active psychosis, depression, suicidal or homicidal ideation. Skin is warm to touch. TIME SPENT: The total time spent evaluating the patient, reviewing pertinent data and appropriate documentation is 55 minutes. [id number]/[facility] #: [id number] MTDD
--- NOTE | 2018-05-04 20:28 | CATH ---
CC: Dr. Gong, [place]; Dr. Nelson Parikh * STENT REPORT: DATE OF PROCEDURE: 04/30/18 - ROOM #[id number] PRIMARY CARE PHYSICIAN: Dr. Gong in [place]. PROCEDURES: Right radial artery access, bilateral selective coronary cineangiography, left heart catheterization. LV-gram not performed. HISTORY: A 52-year-old diabetic presenting with [id number] infarct. He presented with decompensated acute systolic and probably diastolic heart failure , improved symptomatically with diuresis. PROCEDURE ACCESS: Right radial artery sheath 6F slender. MEDICATIONS: 1. Subcu lidocaine. 2. IV Versed. 3. IV fentanyl. 4. Radial cocktail, heparin 5000 units, 4000 units. 5. Brilinta 180 mg p.o. loading dose. DIAGNOSTIC CATHETER: 5F TIG4, 5F R4. GUIDING CATHETER: Circumflex 6F VL 3.5. WIRE: 14 BMW used to deploy a 3.0 x 20 Synergy drug-eluting stent in the mid circumflex, post dilated with an NC balloon 3 x 20, 20 atmospheres 30 seconds. HEMODYNAMICS: Initial AO 95/71, LV 109/17-29, no aortic valve gradients on pullback. ANGIOGRAPHY: Left main. The left main has minimal ostial taper without significant stenosis. LAD. The LAD is moderate, extends past the apex, is calcified with fairly diffuse luminal irregularity. It supplies a moderate diagonal which has a smooth 50% stenosis. After the diagonal, the LAD has a 30% to 40% smooth stenosis. Distally, the LAD extends past the apex. Circumflex. The circumflex is not dominant, is large. There is a relatively small diffusely diseased first marginal branch which has ostial 60% stenosis or less, distally has fairly diffuse plaquing. The mid-circumflex has an eccentric 80% to 90% with ANA 3 flow distally. This is followed by a small-to- moderate posterolateral that has several areas of 50% to 60% stenoses and is diffusely diseased. The AV groove continuation then has tubular 30% to 40% stenosis, then supplies another posterolateral that has luminal irregularity at a bifurcation point, and most distally the circumflex ends with a very small posterolateral branch. RCA. The RCA is moderate, dominant with a moderate PDA which has proximal 30% to 40% stenosis, is followed by 2 small posterolaterals. After circumflex stent placement and post dilatation, there is no residual stenosis. Distal flow is ANA 3. There is no dissection or loss of branches. CONCLUSION: 1. Significant single-vessel disease circumflex with non-ST elevation infarct presentation with accompanying heart failure and fairly diffuse nonobstructive associated coronary disease. 2. Successful right radial artery access. 3. Successful drug-coated stent placement in circumflex. [id number]/[facility] #: [id number] [facility]
== END 2018-05-04 15:34 | disposition home or self-care (01) | DRG 174 ==
LOC: ED 09:39 → MEDTELE 12:48 → ICU 18:22 → MEDTELE 05-02 16:42
PROVIDERS: ADMIT Student in an Organized Health Care Education/Training Program; ATTEND Student in an Organized Health Care Education/Training Program
PROC: B2111ZZ Fluoroscopy of Multiple Coronary Arteries using Low Osmolar Contrast (ICD-10-PCS; 2018-04-30)
PROC: 4A023N7 Measurement of Cardiac Sampling and Pressure, Left Heart, Percutaneous Approach (ICD-10-PCS; 2018-04-30)
PROC: 02703DZ Dilation of Coronary Artery, One Artery with Intraluminal Device, Percutaneous Approach (ICD-10-PCS; principal; 2018-04-30 15:00)
DX: I21.4 Non-ST elevation (NSTEMI) myocardial infarction (principal); E87.1 Hypo-osmolality and hyponatremia; I10 Essential (primary) hypertension; F17.210 Nicotine dependence, cigarettes, uncomplicated; E11.65 Type 2 diabetes mellitus with hyperglycemia; F32.9 Major depressive disorder, single episode, unspecified; J44.9 Chronic obstructive pulmonary disease, unspecified; F41.9 Anxiety disorder, unspecified; K21.9 Gastro-esophageal reflux disease without esophagitis; E78.5 Hyperlipidemia, unspecified; I25.110 Atherosclerotic heart disease of native coronary artery with unstable angina pectoris; I25.5 Ischemic cardiomyopathy; I34.0 Nonrheumatic mitral (valve) insufficiency; Z79.82 Long term (current) use of aspirin; Z83.3 Family history of diabetes mellitus; Z82.49 Family history of ischemic heart disease and other diseases of the circulatory system; Z88.0 Allergy status to penicillin; Z79.4 Long term (current) use of insulin; Z82.3 Family history of stroke; Z82.5 Family history of asthma and other chronic lower respiratory diseases
CPT/HCPCS: 36415; 71046; 71275; 80048; 80053; 80061; 80320; 82550; 82553; 82947; 82977; 83036; 83690; 83735; 83880; 84100; 84484; 85025; 85347; 85610; 85730; 86140; 90686; 90732; 93005; 93306; 93458; 94640; 99156; 99157; 99285; A9270-GY; C1725; C1769; C1876; C1887; C8929; C9600-LC; G0480; J1644; J1885; J1940; J2250; J3010; J3475; J3490; J7512; Q9967

== ENCOUNTER 2024-02-14 17:14 | Inpatient (IN) ==
[2024-02-14] MEDS: Lactated Ringers SEPSIS* BAG 1,770 ML IV ONE (17:45)
[2024-02-14 17:56] LABS: Hemoglobin 11.5 g/dL (13.2-16.3); Mean Corpuscular Hemoglobin 29.5 pg (27-33); Mean Corpuscular Volume 89.4 fL (80-97); Mean Platelet Volume 6.9 fL (7.5-11.2); Platelet Count 605 10^3/uL (150-450); Red Blood Count 3.91 10^6/uL (4.06-5.63); Red Cell Distribution Width 14.1 % (12-17)
[2024-02-14 18:04] LABS: INR 1.18 (0.85-1.14)
[2024-02-14] MEDS ORDERED: Lactated Ringers 1000 ml BAG 1,000 ML IV ONE (18:22)
[2024-02-14 18:27] LABS: ABS Basophils 0.1 10^3/uL (0.0-0.1); ABS Lymphocytes 0.9 10^3/uL (1.0-4.8); ABS Monocytes 1.6 10^3/uL (0.0-1.1); ABS Neutrophils 20.4 10^3/uL (1.5-7.6); Eosinophil % 0.1 %; Lymphocyte % 3.8 %; RBC Morphology Normal (Normal)
[2024-02-14 18:41] LABS: Albumin 2.8 g/dL (3.2-5.2); Albumin/Globulin Ratio 0.8 (1-3); Calcium 8.9 mg/dL (8.6-10.3); Creatinine, Serum 0.92 mg/dL (0.67-1.17); Globulin 3.4 g/dL (2-4); Potassium 3.9 mmol/L (3.5-5.0); Total Bilirubin 0.5 mg/dL (0.2-1.0); Total Protein 6.2 g/dL (6.4-8.9); eGFR CKD-EPI 97.6 (>60)
[2024-02-14] MEDS ORDERED: NS 0.9% IVPB SCH (19:00)
[2024-02-14] MEDS ORDERED: VANCOMYCIN IVPB SCH (19:00)
[2024-02-14] MEDS: Cefepime 2 GM in Dextrose 2 GM/50 ML BAG IV ONE (19:13)
[2024-02-14] MEDS: Vancomycin 1,000 MG - ED ONCE IVPB ONE (19:50)
[2024-02-14] MEDS: Iodixanol 320 (CONTRAST) 100 ML SDV IV ONE (19:58)
[2024-02-14] MEDS ORDERED: Vancomycin per Pharmacy 1 EA NOTE FOLLOW UP SCH (21:00)
[2024-02-14 21:07] LABS: Urine Appearance Clear; Urine Bilirubin Negative (Negative); Urine Blood Negative (Negative); Urine Color Light-Yellow; Urine Glucose Negative (Negative); Urine Ketones Negative (Negative); Urine Nitrite Negative (Negative); Urine Protein Trace (Negative); Urine Urobilinogen Negative (Negative)
[2024-02-14 21:12] LABS: C Reactive Protein 307.43 mg/L (<8.01)
[2024-02-14] MEDS ORDERED: Albuterol HFA INHALER 8 gm MDI INH PRN (21:16)
[2024-02-14] MEDS: Lactated Ringers 1000 ml BAG 1,000 ML IV SCH (21:28)
[2024-02-14] MEDS: metroNIDAZOLE IV 500 MG/100ML 500 MG/100 ML BAG IVPB SCH (21:29)
[2024-02-14 22:04] LABS: Erythrocyte Sed Rate > 120 mm/Hr (0-19)
[2024-02-14] MEDS ORDERED: Dextrose 50% Syringe 50 ml 25 GM/50 ML SYRINGE IV PUSH PRN (22:42)
[2024-02-15] MEDS: Morphine 2 MG/ML SYRINGE IV PRN (03:20)
[2024-02-15] MEDS: Cefepime 2 GM in Dextrose 2 GM/50 ML BAG IV SCH (04:39)
[2024-02-15] MEDS: Vancomycin 1000 MG in NS 0.9% 250 ML IVPB SCH (07:12)
[2024-02-15 07:22] LABS: ABS Basophils 0.1 10^3/uL (0.0-0.1); ABS Eosinophils 0.1 10^3/uL (0.0-0.5); ABS Lymphocytes 1.2 10^3/uL (1.0-4.8); ABS Monocytes 1.1 10^3/uL (0.0-1.1); ABS Neutrophils 11.3 10^3/uL (1.5-7.6); ABS Nucleated RBC 0.01 10^3/ul; Eosinophil % 0.8 %; Hematocrit 32.5 % (38-53); Hemoglobin 10.9 g/dL (13.2-16.3); Mean Corpuscular Hemoglobin 30.3 pg (27-33); Mean Corpuscular Hgb Conc 33.6 g/dL (31-36); Mean Corpuscular Volume 90.2 fL (80-97); Mean Platelet Volume 6.8 fL (7.5-11.2); Platelet Count 457 10^3/uL (150-450); Red Blood Count 3.61 10^6/uL (4.06-5.63); Red Cell Distribution Width 14.2 % (12-17); White Blood Count 13.8 10^3/uL (3.6-10.2)
[2024-02-15 08:01] LABS: Calcium 8.2 mg/dL (8.6-10.3); Creatinine, Serum 0.61 mg/dL (0.67-1.17); Magnesium 1.4 mg/dL (1.9-2.7); eGFR CKD-EPI 112.7 (>60)
[2024-02-15] MEDS: Nicotine PATCH 21 MG/24 HR PATCH TRANSDERM SCH (09:39)
[2024-02-15] MEDS: ICOSAPENT ETHYL 1 GM CAPSULE (NF) PO SCH (09:41)
[2024-02-15] MEDS: DULoxetine DR 20 mg CAP PO SCH (09:43)
[2024-02-15] MEDS: Aspirin EC 81 mg TAB.EC (enteric coated) PO SCH (09:43)
[2024-02-15] MEDS: tadalafiL 5 MG TABLET (NF) PO SCH (09:46)
[2024-02-15] MEDS: Magnesium Sulf 4 GM/100 ML IV 4,000 MG/100 ML BAG IVPB ONE (14:00)
[2024-02-15] MEDS: cefTRIAXone 2 gm/50 mL D5W 2 GM/50 ML BAG IV SCH (15:58)
[2024-02-16] MEDS ORDERED: Vancomycin Trough Check NOTE FOLLOW UP ONE (05:30)
[2024-02-16 06:02] LABS: Creatinine, Serum 0.69 mg/dL (0.67-1.17); Vancomycin Trough 4.3 mcg/mL; eGFR CKD-EPI 108.6 (>60)
[2024-02-16 07:39] LABS: ABS Monocytes 0.9 10^3/uL (0.0-1.1); ABS Neutrophils 8.3 10^3/uL (1.5-7.6); ABS Nucleated RBC 0.01 10^3/ul; Eosinophil % 0.4 %; Hematocrit 33.8 % (38-53); Hemoglobin 11.2 g/dL (13.2-16.3); Lymphocyte % 9.4 %; Mean Corpuscular Hemoglobin 30.1 pg (27-33); Mean Corpuscular Hgb Conc 33.3 g/dL (31-36); Mean Corpuscular Volume 90.6 fL (80-97); Mean Platelet Volume 7.2 fL (7.5-11.2); Nucleated Red Blood Cells % 0.1 %/100WBC (0.0-0.8); Platelet Count 442 10^3/uL (150-450); Red Blood Count 3.73 10^6/uL (4.06-5.63); Red Cell Distribution Width 14.3 % (12-17); White Blood Count 10.3 10^3/uL (3.6-10.2)
[2024-02-16 07:54] LABS: Calcium 8.1 mg/dL (8.6-10.3); Potassium 3.7 mmol/L (3.5-5.0)
[2024-02-16 08:52] LABS: Magnesium 1.8 mg/dL (1.9-2.7)
[2024-02-16] MEDS: Magnesium Sulfate 2 gm BAG 2 GM/50 ML BAG IVPB ONE (14:51)
[2024-02-17 06:52] LABS: ABS Eosinophils 0.1 10^3/uL (0.0-0.5); ABS Lymphocytes 1.3 10^3/uL (1.0-4.8); ABS Monocytes 0.8 10^3/uL (0.0-1.1); Eosinophil % 1.1 %; Hemoglobin 10.5 g/dL (13.2-16.3); Lymphocyte % 15.4 %; Mean Corpuscular Hemoglobin 30.4 pg (27-33); Mean Corpuscular Volume 89.4 fL (80-97); Mean Platelet Volume 6.5 fL (7.5-11.2); Platelet Count 481 10^3/uL (150-450); Red Blood Count 3.47 10^6/uL (4.06-5.63); Red Cell Distribution Width 14.1 % (12-17); White Blood Count 8.2 10^3/uL (3.6-10.2)
[2024-02-17 07:12] LABS: Calcium 7.6 mg/dL (8.6-10.3); Creatinine, Serum 0.65 mg/dL (0.67-1.17); Potassium 3.4 mmol/L (3.5-5.0); eGFR CKD-EPI 110.6 (>60)
[2024-02-17 08:30] LABS: Magnesium 1.7 mg/dL (1.9-2.7)
[2024-02-17] MEDS ORDERED: Vancomycin per Pharmacy 1 EA NOTE FOLLOW UP PRN (08:57)
[2024-02-17] MEDS ORDERED: Sulfur Hexaflouride MICROSPHR 25 MG VIAL IV PRN (08:57)
[2024-02-17] MEDS: Magnesium Sulfate 2 gm BAG 2 GM/50 ML BAG IVPB ONE (11:03)
[2024-02-17] MEDS: Enoxaparin 40 MG/0.4 ML SYR SUBCUT SCH (11:03)
[2024-02-17] MEDS: Vancomycin 1,250 MG in NS 0.9% 250 ml 250 ML IVPB ONE (11:04)
[2024-02-17 14:51] LABS: C Reactive Protein 121.51 mg/L (<8.01)
[2024-02-17] MEDS: Gadoteridol (CONTRAST) 279.3 MG/ML 10 ML IV ONE (15:19)
[2024-02-17] MEDS: Potassium Chlor 20 meq TAB.ER PO ONE (15:33)
[2024-02-17] MEDS: Influenza Vaccine *TRI* 2024-25* 0.5 ML SYRINGE IM ONE (16:25)
[2024-02-17] MEDS: COVID VAC 24-25 (12+) (Moderna) Syringe 0.5 mL IM ONE (18:15)
[2024-02-17] MEDS: Vancomycin 1000 MG in NS 0.9% 250 ML IVPB SCH (18:15)
[2024-02-17] MEDS: Iodixanol 320 (CONTRAST) 100 ML SDV IV ONE (19:54)
[2024-02-18 06:43] LABS: ABS Basophils 0.1 10^3/uL (0.0-0.1); ABS Eosinophils 0.1 10^3/uL (0.0-0.5); ABS Lymphocytes 0.9 10^3/uL (1.0-4.8); ABS Monocytes 0.7 10^3/uL (0.0-1.1); ABS Neutrophils 5.3 10^3/uL (1.5-7.6); Eosinophil % 1.6 %; Hematocrit 28.6 % (38-53); Hemoglobin 9.9 g/dL (13.2-16.3); Lymphocyte % 12.6 %; Mean Corpuscular Hemoglobin 30.6 pg (27-33); Mean Corpuscular Hgb Conc 34.5 g/dL (31-36); Mean Corpuscular Volume 88.7 fL (80-97); Mean Platelet Volume 6.4 fL (7.5-11.2); Platelet Count 412 10^3/uL (150-450); Red Blood Count 3.23 10^6/uL (4.06-5.63); Red Cell Distribution Width 14.2 % (12-17); White Blood Count 7.1 10^3/uL (3.6-10.2)
[2024-02-18 07:24] LABS: Calcium 7.6 mg/dL (8.6-10.3); Creatinine, Serum 0.55 mg/dL (0.67-1.17); Magnesium 1.6 mg/dL (1.9-2.7); Potassium 3.9 mmol/L (3.5-5.0); eGFR CKD-EPI 116.3 (>60)
[2024-02-18] MEDS ORDERED: Flumazenil 0.5 mg/5 ml 0.1 MG/ML 5 ml VIAL IV PRN (08:37)
[2024-02-18] MEDS ORDERED: Naloxone 0.4 mg VIAL 0.4 mg/ml 1 ml VIAL IV PUSH PRN (08:37)
[2024-02-18 10:35] LABS: Creatinine, Serum 0.62 mg/dL (0.67-1.17); Vancomycin Trough 13.1 mcg/mL; eGFR CKD-EPI 112.2 (>60)
[2024-02-18] MEDS ORDERED: Metoclopramide 5 MG/ML VIAL (10 mg) IV PRN (11:37)
[2024-02-18] MEDS ORDERED: Naloxone 0.4 mg VIAL 0.4 mg/ml 1 ml VIAL IV PRN (11:37)
[2024-02-18] MEDS ORDERED: Ondansetron 4 mg VIAL 2 MG/ML 2 ml VIAL IV PRN (11:37)
[2024-02-18] MEDS ORDERED: fentaNYL 100 mcg/2 ml 50 MCG/ML VIAL IV PRN (11:37)
[2024-02-18] MEDS ORDERED: NS 0.45% 1000 ml BAG 1,000 ML IV SCH (12:00)
[2024-02-18] MEDS: Vancomycin 1,250 MG in NS 0.9% 250 ml 250 ML IVPB SCH (12:32)
[2024-02-18] MEDS: Acetaminophen IV 1 GM/100ML 1,000 MG/100 ML BAG IV ONE (12:32)
[2024-02-18] MEDS: Buffered Lidocaine 1% SYRIN 1 ml INTRADERM ONE (12:33)
[2024-02-18] MEDS ORDERED: Propofol 10 MG/ML 20 ML BTL ONE (12:44)
[2024-02-18] MEDS ORDERED: Midazolam 2 mg/2 ml VIAL 1 mg/ml 2 ml VIAL (2 mg) ONE (12:44)
[2024-02-18] MEDS ORDERED: fentaNYL 100 mcg/2 ml 50 MCG/ML VIAL ONE (12:44)
[2024-02-18] MEDS ORDERED: Lidocaine 2% PF 5 ML VIAL ONE (12:44)
[2024-02-18] MEDS ORDERED: Dexamethasone IV 4 MG/ML VIAL 1 ml VIAL ONE ×2 (12:44→12:46)
[2024-02-18] MEDS ORDERED: Ondansetron 4 mg VIAL 2 MG/ML 2 ml VIAL ONE (12:44)
[2024-02-18] MEDS ORDERED: Succinylcholine 200 mg VIAL 20 mg/ml 10 ml VIAL (200 mg) ONE (12:44)
[2024-02-18] MEDS ORDERED: Sodium Chloride 0.9% 10 ML ONE (12:46)
[2024-02-18] MEDS ORDERED: Rocuronium 50 mg VIAL 10 mg/ml 5 ml VIAL (50 mg) ONE ×2 (12:56→13:13)
[2024-02-18] MEDS ORDERED: Lidocaine 1% VIAL 10 MG/ML 30 ML VIAL ONE (14:11)
[2024-02-18] MEDS: fentaNYL 100 mcg/2 ml 50 MCG/ML VIAL IV SLOW PU ONE (16:10)
[2024-02-18] MEDS: Midazolam 10 mg/10 ml VIAL 1 mg/ml 10 ml VIAL (10 mg) IV SLOW PU ONE (16:11)
[2024-02-18] MEDS: Scopolamine 1 mg/72hr PATCH TRANSDERM ONE (16:14)
[2024-02-18] MEDS: Lactated Ringers 1000 ml BAG 1,000 ML IV SCH ×2 (16:15→18:33)
[2024-02-18] MEDS: Magnesium Sulf 4 GM/100 ML IV 4,000 MG/100 ML BAG IVPB ONE (18:26)
[2024-02-18] MEDS: Vancomycin Trough Check NOTE FOLLOW UP ONE (21:36)
[2024-02-19] MEDS: Enoxaparin 40 MG/0.4 ML SYR SUBCUT SCH (09:45)
[2024-02-19 09:52] LABS: ABS Basophils 0.1 10^3/uL (0.0-0.1); ABS Eosinophils 0.1 10^3/uL (0.0-0.5); ABS Monocytes 0.6 10^3/uL (0.0-1.1); ABS Neutrophils 5.5 10^3/uL (1.5-7.6); Eosinophil % 0.7 %; Hematocrit 29.9 % (38-53); Hemoglobin 9.9 g/dL (13.2-16.3); Lymphocyte % 14.3 %; Mean Corpuscular Hemoglobin 29.7 pg (27-33); Mean Corpuscular Hgb Conc 33.2 g/dL (31-36); Mean Corpuscular Volume 89.2 fL (80-97); Mean Platelet Volume 6.6 fL (7.5-11.2); Platelet Count 426 10^3/uL (150-450); Red Blood Count 3.35 10^6/uL (4.06-5.63); Red Cell Distribution Width 14.3 % (12-17); White Blood Count 7.3 10^3/uL (3.6-10.2)
[2024-02-19 10:15] LABS: Calcium 7.7 mg/dL (8.6-10.3); Creatinine, Serum 0.55 mg/dL (0.67-1.17); eGFR CKD-EPI 116.3 (>60)
[2024-02-19] MEDS ORDERED: Lidocaine 1% MPF 5 ML VIAL ONE ×2 (15:12→15:13)
[2024-02-19] MEDS ORDERED: Iohexol 350 (CONTRAST) 100 ML PAK IV ONE ×2 (15:13→15:52)
[2024-02-19] MEDS ORDERED: Heparin 2 UNITS/ML IVPREMIX 3,000 UNIT/1,500 ML BAG IV ONE (15:13)
[2024-02-19] MEDS ORDERED: Lidocaine 1% VIAL 10 MG/ML 30 ML VIAL ONE (15:14)
[2024-02-19] MEDS ORDERED: fentaNYL 100 mcg/2 ml 50 MCG/ML VIAL ONE ×2 (15:20→16:10)
[2024-02-19] MEDS ORDERED: Midazolam 5 mg/5 ml VIAL 1 mg/ml 5 ml VIAL (5 mg) ONE (15:20)
[2024-02-19] MEDS ORDERED: Heparin 1,000 UNIT/ML 10 ml (10,000 UNITS) CATHLAB/DIALYSIS ONE (15:32)
[2024-02-19] MEDS: Vancomycin Trough Check NOTE FOLLOW UP ONE (20:45)
[2024-02-20] MEDS: Vancomycin 1000 MG in NS 0.9% 250 ML IVPB SCH ×2 (03:15→03:40)
[2024-02-20] MEDS ORDERED: Vancomycin Trough Check NOTE FOLLOW UP ONE (15:30)
[2024-02-21 08:28] LABS: ABS Eosinophils 0.1 10^3/uL (0.0-0.5); ABS Lymphocytes 0.6 10^3/uL (1.0-4.8); ABS Monocytes 0.3 10^3/uL (0.0-1.1); ABS Neutrophils 4.8 10^3/uL (1.5-7.6); ABS Nucleated RBC 0.01 10^3/ul; Eosinophil % 1.8 %; Hematocrit 32.2 % (38-53); Hemoglobin 10.8 g/dL (13.2-16.3); Lymphocyte % 9.7 %; Mean Corpuscular Hgb Conc 33.5 g/dL (31-36); Mean Corpuscular Volume 89.7 fL (80-97); Mean Platelet Volume 6.4 fL (7.5-11.2); Nucleated Red Blood Cells % 0.1 %/100WBC (0.0-0.8); Platelet Count 468 10^3/uL (150-450); Red Cell Distribution Width 14.6 % (12-17); White Blood Count 5.7 10^3/uL (3.6-10.2)
[2024-02-21 09:15] LABS: Calcium 7.8 mg/dL (8.6-10.3); Creatinine, Serum 0.68 mg/dL (0.67-1.17); Potassium 3.8 mmol/L (3.5-5.0); eGFR CKD-EPI 109.1 (>60)
[2024-02-21] MEDS: Vancomycin Trough Check NOTE FOLLOW UP ONE (10:13)
[2024-02-21 14:14] VITALS: BP 141/85
[2024-02-22] MEDS ORDERED: Vancomycin Trough Check NOTE FOLLOW UP ONE (11:30)
== END 2024-02-21 15:30 | disposition home or self-care (01) | DRG 710 ==
LOC: ED 17:14 → SSU 17:14 → EDHOLD 17:14 → INTOOBSV 20:06 → OBSVTOIN 20:06 → SSU 02-15 02:18 → MED 02-16 06:12 → UNDODISIN 02-21 15:30
PROVIDERS: ADMIT Student in an Organized Health Care Education/Training Program; ATTEND Student in an Organized Health Care Education/Training Program